=== PATIENT | female | born 1940 | race Caucasian/White ===

== ENCOUNTER 2017-08-27 21:07 | Emergency (ER) | payer MEDICARE, MEDICAID ==
[~2017-08-27] VITALS: Ht 157.5 cm; Wt 70.9 kg
[~2017-08-27 21:07] MED LIST: ACETAMINOPHEN; ALBU18HF2 IH; ALEN70TA48 PO; BENAZEPRIL 5 MG; CITA-278 PO; CYCL-1 PO; HYDROCODONE; INSU100C4 SQ; INSU100V12 SQ; LORA0.5T PO; LORATADINE 10 MG; LOVA40TA2 PO; METO5TAB98 PO; OFLOXACIN 0.3%; PANT-47 PO; POLY17PO10 PO; PROP20TA6 PO; TIZANIDINE 2 MG; [UNRECOGNIZED DRUG - MIXTURE]
[2017-08-27] MEDS ORDERED: ondansetron 4mg rapidly disintigrating tab PO ONE (22:35)
[2017-08-27] MEDS ORDERED: morphine 5 MG/ML injection IM ONE (22:35)
[2017-08-27] MEDS ORDERED: morphine 4 MG/ML inj SYRINge IM ONE ×2 (22:50→23:45)
[2017-08-27] MEDS ORDERED: tizanidine 4mg tablet PO STA (23:38)
[2017-08-27] MEDS ORDERED: diazepam 5mg tablet PO ONE (23:40)
[2017-08-28 01:35] VITALS: BP 117/68
== END 2017-08-28 01:38 | disposition home or self-care (01) ==
LOC: ER 21:08
DX: M54.41 Lumbago with sciatica, right side (principal); E11.9 Type 2 diabetes mellitus without complications; Z88.6 Allergy status to analgesic agent; Z88.2 Allergy status to sulfonamides; Z88.8 Allergy status to other drugs, medicaments and biological substances; Z79.82 Long term (current) use of aspirin
CPT/HCPCS: 96372; 99284; J2270

== ENCOUNTER 2017-10-30 17:41 | Inpatient (IN) | payer MEDICARE, MEDICAID ==
[~2017-10-30] VITALS: Ht 157.5 cm; Wt 70.9 kg
[2017-10-30] MEDS ORDERED: normal saline 1000ML IV soln IVB ONE (18:15)
[2017-10-30] MEDS ORDERED: ondansetron/PF 4mg/2ml inj IV ONE (18:15)
[2017-10-30] MEDS ORDERED: morphine 4 MG/ML inj SYRINge IV PRN ×3 (18:15→22:30)
[2017-10-30] MEDS ORDERED: LORazepam 2 mg/ml vial IV ONE (18:20)
[2017-10-30 18:35] LABS: BASOPHILS % (AUTO) 0 % (0-1); EOSINOPHILS # (AUTO) 0.4 X10'3 (0-0.9); EOSINOPHILS % (AUTO) 1.9 % (0-6); HEMATOCRIT 38.5 % (35.0-45.0); HEMOGLOBIN 13.2 g/dl (12.0-16.0); LYMPHOCYTES # (AUTO) 2.9 X10'3 (1.1-4.8); LYMPHOCYTES % (AUTO) 14.9 % (21-51); MEAN CORPUSCULAR HEMOGLOBIN 30.9 PG (27.0-31.0); MEAN CORPUSCULAR HGB CONC 34.2 % (33.0-36.5); MEAN CORPUSCULAR VOLUME 90.4 FL (78-98); MEAN PLATELET VOLUME 6.7 FL (7.4-10.4); MONOCYTES # (AUTO) 0.7 X10'3 (0-0.9); MONOCYTES % (AUTO) 3.7 % (2-12); NEUTROPHILS # (AUTO) 15.5 X10'3 (1.8-7.7); NEUTROPHILS % (AUTO) 79.5 % (42-75); PLATELET COUNT 300 X10'3 (140-440); RED BLOOD COUNT 4.26 X10'6 (4.20-5.60); RED CELL DISTRIBUTION WIDTH 13.5 % (11.5-14.5); WHITE BLOOD COUNT 19.5 X10'3 (4.5-11.0)
[2017-10-30 18:54] LABS: ALANINE AMINOTRANSFERASE 31 U/L (12-78); ALBUMIN 3.7 G/DL (3.4-5.0); ALBUMIN/GLOBULIN RATIO 0.9 (1.1-1.5); ALKALINE PHOSPHATASE 134 IU/L (46-116); ANION GAP 17 (8-16); ASPARTATE AMINO TRANSFERASE 21 U/L (10-37); BILIRUBIN,TOTAL 0.3 MG/DL (0.1-1.0); BLOOD UREA NITROGEN 18 MG/DL (7-18); BUN/CREATININE RATIO 12.6 (6.6-38.0); CALCIUM 9.2 MG/DL (8.5-10.1); CHLORIDE 106 MMOL/L (99-107); CREATININE 1.43 MG/DL (0.40-0.90); GLUCOSE 149 MG/DL (70-104); LIPASE 126 U/L (73-393); POTASSIUM 3.5 MMOL/L (3.5-5.1); SODIUM 140 MMOL/L (135-145); TOTAL CARBON DIOXIDE 16.6 MMOL/L (24-32); TOTAL PROTEIN 7.7 G/DL (6.4-8.2); eGFR 36 ML/MIN
[2017-10-30 19:28] LABS: COLOR,URINE YELLOW (Yellow); GLUCOSE, URINE NEGATIVE (Neg); KETONES,URINE 40 mg/dl (Neg); LEUKOCYTE ESTERASE ,URINE MODERATE (Neg); NITRITES, URINE NEGATIVE (Neg); OCCULT BLOOD,URINE NEGATIVE (Neg); PROTEIN,URINE TRACE mg/dl (Neg); UROBILINOGEN,URINE 0.2 E.U/dL (0.2-1.0)
[2017-10-30 19:33] LABS: CLARITY,URINE SLIGHTLY CLOUDY (Clear); UA COLLECTION TYPE CLN CATCH MIDSTREAM
[2017-10-30 19:35] LABS: BACTERIA,URINE FEW /HPF (Neg); RBC,URINE 0-2 /HPF (0-2); SQUAMOUS EPITHELIAL CELL,UR FEW /LPF (FEW)
[2017-10-30] MEDS ORDERED: CefTRIAXone 2gm/D5W 50ml 50 ML IV ONE (19:45)
[2017-10-30] MEDS ORDERED: insulin glargine (Lantus) pen - multi-dose SQ ONE (21:00)
[2017-10-30] MEDS ORDERED: BENA5TAB2 PO (21:52)
[2017-10-30] MEDS ORDERED: LORA10TA7 PO (21:52)
[2017-10-30] MEDS ORDERED: OMEP-50 PO (21:52)
[2017-10-30] MEDS ORDERED: HYDR50CA5 PO (21:52)
[2017-10-30] MEDS ORDERED: CITA20TA27 PO (21:52)
[2017-10-30] MEDS ORDERED: TIZA2TAB4 PO (21:52)
[2017-10-30] MEDS ORDERED: acetaminophen 325mg tablet PO PRN ×2 (22:30)
[2017-10-30] MEDS ORDERED: mag hydrox/Alum hydrox/simeth 30ml oral suspension PO PRN (22:30)
[2017-10-30] MEDS ORDERED: ondansetron/PF 4mg/2ml inj IV PRN (22:30)
[2017-10-30] MEDS ORDERED: magnesium hydroxide 30ml (MOM) UD suspension PO PRN (22:30)
[2017-10-30] MEDS ORDERED: docusate sod 100mg capsule PO PRN (22:30)
[2017-10-30] MEDS: normal saline 1000ml 1,000 ML IV SCH (22:52)
[2017-10-30] MEDS ORDERED: normal saline 1000ML IV soln IV ONE (23:05)
[2017-10-30 23:20] LABS: MAGNESIUM 1.6 MG/DL (1.5-2.4)
[2017-10-30] MEDS ORDERED: normal saline 1000ml 1,000 ML IV ONE (23:35)
[2017-10-30] MEDS ORDERED: hydrOXYzine 25 MG tablet PO PRN (23:35)
[2017-10-30 23:55] LABS: PARTIAL THROMBOPLASTIN TIME 25 SECONDS (22-32); PROTHROMBIN TIME 10.7 SECONDS (9.0-12.0)
[2017-10-31] MEDS ORDERED: dextrose ORAL solution 15 GM/59 ML bottle PO PRN ×2 (00:30)
[2017-10-31] MEDS ORDERED: glucagon, human recombinant 1mg kit SUBCUT PRN (00:30)
[2017-10-31] MEDS ORDERED: MESSAGE TO PHARMACY PO ONE (00:30)
[2017-10-31] MEDS ORDERED: dextrose 50%-water 50ml dispensing syringe IV PRN ×2 (00:30)
[2017-10-31 02:40] VITALS: BP 149/71
[2017-10-31 07:31] VITALS: BP 127/70
[2017-10-31] MEDS ORDERED: CefTRIAXone 2gm/D5W 50ml 50 ML IV SCH (08:00)
[2017-10-31 09:31] LABS: BASOPHILS % (AUTO) 0.2 % (0-1); EOSINOPHILS # (AUTO) 0.2 X10'3 (0-0.9); HEMATOCRIT 30.5 % (35.0-45.0); HEMOGLOBIN 10.3 g/dl (12.0-16.0); LYMPHOCYTES # (AUTO) 2.2 X10'3 (1.1-4.8); LYMPHOCYTES % (AUTO) 19.3 % (21-51); MEAN CORPUSCULAR HEMOGLOBIN 30.4 PG (27.0-31.0); MEAN CORPUSCULAR HGB CONC 33.8 % (33.0-36.5); MEAN PLATELET VOLUME 6.9 FL (7.4-10.4); MONOCYTES # (AUTO) 0.5 X10'3 (0-0.9); MONOCYTES % (AUTO) 4.2 % (2-12); NEUTROPHILS # (AUTO) 8.6 X10'3 (1.8-7.7); NEUTROPHILS % (AUTO) 74.3 % (42-75); PLATELET COUNT 219 X10'3 (140-440); RED BLOOD COUNT 3.39 X10'6 (4.20-5.60); RED CELL DISTRIBUTION WIDTH 13.8 % (11.5-14.5); WHITE BLOOD COUNT 11.6 X10'3 (4.5-11.0)
[2017-10-31 09:43] LABS: ALBUMIN 2.7 G/DL (3.4-5.0); ANION GAP 8 (8-16); BLOOD UREA NITROGEN 14 MG/DL (7-18); BUN/CREATININE RATIO 12.6 (6.6-38.0); CALCIUM 7.6 MG/DL (8.5-10.1); CHLORIDE 111 MMOL/L (99-107); CREATININE 1.11 MG/DL (0.40-0.90); GLUCOSE 113 MG/DL (70-104); POTASSIUM 3.9 MMOL/L (3.5-5.1); SODIUM 141 MMOL/L (135-145); TOTAL CARBON DIOXIDE 21.6 MMOL/L (24-32); eGFR 48 ML/MIN
[2017-10-31] MEDS: citalopram 20mg tablet PO SCH (09:52)
[2017-10-31] MEDS: loratadine 10mg tablet PO SCH (09:53)
[2017-10-31] MEDS: tizanidine 4mg tablet PO SCH ×3 (09:53→21:20)
[2017-10-31] MEDS: pantoprazole 40mg Tablet.DR PO SCH ×2 (09:54→21:20)
[2017-10-31] MEDS: lisinopril 5mg tablet PO SCH (09:54)
[2017-10-31] MEDS: enoxaparin 40mg/0.4ml syringe SQ SCH (09:55)
[2017-10-31 11:00] VITALS: BP 140/64
[2017-10-31] MEDS: normal saline 1000ml 1,000 ML IV SCH ×3 (11:53→23:00)
[2017-10-31] MEDS: ibuprofen tablet 400 MG TABLET PO PRN (13:45)
[2017-10-31 18:00] VITALS: BP 121/53
[2017-10-31] MEDS: insulin glargine (Lantus) pen - multi-dose SQ SCH (21:19)
[2017-11-01] VITALS: BP 125/65
[2017-11-01 05:49] LABS: BASOPHILS % (AUTO) 0.2 % (0-1); EOSINOPHILS # (AUTO) 0.2 X10'3 (0-0.9); EOSINOPHILS % (AUTO) 3.5 % (0-6); HEMATOCRIT 30.7 % (35.0-45.0); HEMOGLOBIN 10.4 g/dl (12.0-16.0); LYMPHOCYTES # (AUTO) 1.8 X10'3 (1.1-4.8); LYMPHOCYTES % (AUTO) 25.5 % (21-51); MEAN CORPUSCULAR HEMOGLOBIN 30.6 PG (27.0-31.0); MEAN CORPUSCULAR HGB CONC 33.8 % (33.0-36.5); MEAN CORPUSCULAR VOLUME 90.5 FL (78-98); MEAN PLATELET VOLUME 7.1 FL (7.4-10.4); MONOCYTES # (AUTO) 0.3 X10'3 (0-0.9); MONOCYTES % (AUTO) 4.1 % (2-12); NEUTROPHILS # (AUTO) 4.7 X10'3 (1.8-7.7); NEUTROPHILS % (AUTO) 66.7 % (42-75); PLATELET COUNT 182 X10'3 (140-440); RED CELL DISTRIBUTION WIDTH 13.6 % (11.5-14.5)
[2017-11-01 06:51] LABS: ALBUMIN 2.6 G/DL (3.4-5.0); ANION GAP 9 (8-16); BLOOD UREA NITROGEN 11 MG/DL (7-18); CALCIUM 7.7 MG/DL (8.5-10.1); CHLORIDE 111 MMOL/L (99-107); GLUCOSE 187 MG/DL (70-104); POTASSIUM 4.7 MMOL/L (3.5-5.1); SODIUM 140 MMOL/L (135-145); TOTAL CARBON DIOXIDE 20.1 MMOL/L (24-32); eGFR 48 ML/MIN
[2017-11-01 07:00] VITALS: BP_SYST 118; BP_SYST 135; BP_DIAS 73; BP_DIAS 75
[2017-11-01] MEDS: loratadine 10mg tablet PO SCH (07:14)
[2017-11-01] MEDS: pantoprazole 40mg Tablet.DR PO SCH ×2 (07:14→20:39)
[2017-11-01] MEDS: clindamycin 150mg capsule PO SCH ×3 (07:15→20:38)
[2017-11-01] MEDS: citalopram 20mg tablet PO SCH (07:15)
[2017-11-01] MEDS: tizanidine 4mg tablet PO SCH ×3 (07:15→20:39)
[2017-11-01] MEDS: enoxaparin 40mg/0.4ml syringe SQ SCH (07:18)
[2017-11-01] MEDS: lisinopril 5mg tablet PO SCH (07:18)
[2017-11-01] MEDS: insulin Lispro (HumaLOG) vial - multi-dose SQ SCH ×2 (09:32→13:12)
[2017-11-01 11:00] VITALS: BP 143/56
[2017-11-01] MEDS: ibuprofen tablet 400 MG TABLET PO PRN ×2 (12:10→20:40)
[2017-11-01] MEDS ORDERED: vancomycin/NS 1 GM ADD-VANTAGE 250 ML IV SCH (14:00)
[2017-11-01 19:30] VITALS: BP 139/79
[2017-11-01] MEDS: lactobacillus rhamnosus 10,000 MMU CELLS/CAPSULE PO SCH (20:38)
[2017-11-01] MEDS: insulin glargine (Lantus) pen - multi-dose SQ SCH (22:42)
[2017-11-02] VITALS: BP 146/75
[2017-11-02] MEDS: clindamycin 150mg capsule PO SCH ×2 (02:37→07:37)
[2017-11-02 05:32] LABS: BASOPHILS % (AUTO) 0.2 % (0-1); EOSINOPHILS # (AUTO) 0.2 X10'3 (0-0.9); EOSINOPHILS % (AUTO) 2.8 % (0-6); HEMATOCRIT 32.5 % (35.0-45.0); HEMOGLOBIN 10.8 g/dl (12.0-16.0); LYMPHOCYTES # (AUTO) 1.7 X10'3 (1.1-4.8); LYMPHOCYTES % (AUTO) 20.8 % (21-51); MEAN CORPUSCULAR HGB CONC 33.4 % (33.0-36.5); MEAN CORPUSCULAR VOLUME 89.8 FL (78-98); MEAN PLATELET VOLUME 6.8 FL (7.4-10.4); MONOCYTES # (AUTO) 0.4 X10'3 (0-0.9); MONOCYTES % (AUTO) 4.8 % (2-12); NEUTROPHILS # (AUTO) 5.7 X10'3 (1.8-7.7); NEUTROPHILS % (AUTO) 71.4 % (42-75); PLATELET COUNT 212 X10'3 (140-440); RED BLOOD COUNT 3.62 X10'6 (4.20-5.60); RED CELL DISTRIBUTION WIDTH 13.4 % (11.5-14.5)
[2017-11-02] MEDS: ibuprofen tablet 400 MG TABLET PO PRN (05:37)
[2017-11-02 05:57] LABS: ALBUMIN 2.7 G/DL (3.4-5.0); ANION GAP 9 (8-16); BLOOD UREA NITROGEN 12 MG/DL (7-18); BUN/CREATININE RATIO 10.5 (6.6-38.0); CALCIUM 8.5 MG/DL (8.5-10.1); CHLORIDE 111 MMOL/L (99-107); CREATININE 1.14 MG/DL (0.40-0.90); GLUCOSE 143 MG/DL (70-104); POTASSIUM 4.1 MMOL/L (3.5-5.1); SODIUM 141 MMOL/L (135-145); TOTAL CARBON DIOXIDE 20.9 MMOL/L (24-32); eGFR 46 ML/MIN
[2017-11-02] MEDS: lisinopril 5mg tablet PO SCH (07:37)
[2017-11-02] MEDS: loratadine 10mg tablet PO SCH (07:37)
[2017-11-02] MEDS: tizanidine 4mg tablet PO SCH (07:38)
[2017-11-02] MEDS: lactobacillus rhamnosus 10,000 MMU CELLS/CAPSULE PO SCH (07:38)
[2017-11-02] MEDS: pantoprazole 40mg Tablet.DR PO SCH (07:38)
[2017-11-02] MEDS: citalopram 20mg tablet PO SCH (08:10)
[2017-11-02] MEDS: enoxaparin 40mg/0.4ml syringe SQ SCH (08:11)
[2017-11-02 08:18] VITALS: BP 151/67
[2017-11-02] MEDS: insulin Lispro (HumaLOG) vial - multi-dose SQ SCH (09:36)
[2017-11-02] MEDS ORDERED: CLE150C PO (10:50)
[2017-11-02 15:03] LABS: CRYPTOSPORIDIUM AG NEGATIVE (Neg); GIARDIA LAMBLIA AG NEGATIVE (Neg)
[2017-11-03] MEDS ORDERED: VANCOMYCIN LEVEL IV ONE (13:30)
== END 2017-11-02 13:10 | disposition home or self-care (01) | DRG 872 ==
LOC: ER 17:41 → ED HOLD 22:28 → SUR 3N 10-31 02:30
PROVIDERS: ADMIT Internal Medicine; ATTEND Internal Medicine
DX: A41.9 Sepsis, unspecified organism (principal); N17.9 Acute kidney failure, unspecified; N39.0 Urinary tract infection, site not specified; F13.239 Sedative, hypnotic or anxiolytic dependence with withdrawal, unspecified; R44.0 Auditory hallucinations; K21.9 Gastro-esophageal reflux disease without esophagitis; I12.9 Hypertensive chronic kidney disease with stage 1 through stage 4 chronic kidney disease, or unspecified chronic kidney disease; N18.3 Chronic kidney disease, stage 3 (moderate); F41.0 Panic disorder [episodic paroxysmal anxiety]; F41.1 Generalized anxiety disorder; E78.5 Hyperlipidemia, unspecified; E11.40 Type 2 diabetes mellitus with diabetic neuropathy, unspecified; E11.22 Type 2 diabetes mellitus with diabetic chronic kidney disease; M54.9 Dorsalgia, unspecified; G89.29 Other chronic pain; Z66 Do not resuscitate; K76.0 Fatty (change of) liver, not elsewhere classified; K57.90 Diverticulosis of intestine, part unspecified, without perforation or abscess without bleeding; K04.7 Periapical abscess without sinus; F32.9 Major depressive disorder, single episode, unspecified; D64.9 Anemia, unspecified; B95.5 Unspecified streptococcus as the cause of diseases classified elsewhere; B96.20 Unspecified Escherichia coli [E. coli] as the cause of diseases classified elsewhere; Z88.6 Allergy status to analgesic agent; Z88.1 Allergy status to other antibiotic agents; Z79.899 Other long term (current) drug therapy; Z90.710 Acquired absence of both cervix and uterus; Z87.11 Personal history of peptic ulcer disease; Z88.0 Allergy status to penicillin; Z88.2 Allergy status to sulfonamides; Z88.8 Allergy status to other drugs, medicaments and biological substances
CPT/HCPCS: 36415; 70486; 71045; 80048; 80053; 81001; 82948; 83036; 83605; 83690; 83735; 84145; 85025; 85610; 85730; 87040; 87045; 87046; 87070; 87077; 87088; 87186; 87328; 87329; 87336; 93005; 96361; 96365; 96375; 99285; J0696; J1650; J1815; J2060; J2270; J2405; J3370; J7030; Q0177

== ENCOUNTER 2017-11-11 09:21 | Inpatient (IN) | payer MEDICARE, MEDICAID ==
[~2017-11-11] VITALS: Ht 552.4 cm; Wt 69.3 kg
[~2017-11-11 09:21] MED LIST changes: -ACETAMINOPHEN; -ALBU18HF2 IH; -ALEN70TA48 PO; +BENA5TAB6 PO; -BENAZEPRIL 5 MG; -CITA-278 PO; +CITA20TA27 PO; +CLE150C PO; -CYCL-1 PO; +HYDR50CA5 PO; -HYDROCODONE; -INSU100C4 SQ; -INSU100V12 SQ; -LORA0.5T PO; +LORA10TA7 PO; -LORATADINE 10 MG; -LOVA40TA2 PO; -METO5TAB98 PO; -OFLOXACIN 0.3%; +OMEP-50 PO; -PANT-47 PO; -POLY17PO10 PO; -PROP20TA6 PO; +TIZA2TAB4 PO; -TIZANIDINE 2 MG; -[UNRECOGNIZED DRUG - MIXTURE]
[2017-11-11 09:56] LABS: BASOPHILS % (AUTO) 0.3 % (0-1); EOSINOPHILS # (AUTO) 0.3 X10'3 (0-0.9); EOSINOPHILS % (AUTO) 1.9 % (0-6); HEMATOCRIT 39.6 % (35.0-45.0); HEMOGLOBIN 13.6 g/dl (12.0-16.0); LYMPHOCYTES # (AUTO) 3.9 X10'3 (1.1-4.8); LYMPHOCYTES % (AUTO) 24.9 % (21-51); MEAN CORPUSCULAR HEMOGLOBIN 30.8 PG (27.0-31.0); MEAN CORPUSCULAR HGB CONC 34.4 % (33.0-36.5); MEAN CORPUSCULAR VOLUME 89.4 FL (78-98); MEAN PLATELET VOLUME 6.8 FL (7.4-10.4); MONOCYTES # (AUTO) 0.5 X10'3 (0-0.9); MONOCYTES % (AUTO) 3.1 % (2-12); NEUTROPHILS # (AUTO) 10.9 X10'3 (1.8-7.7); NEUTROPHILS % (AUTO) 69.8 % (42-75); PLATELET COUNT 294 X10'3 (140-440); RED BLOOD COUNT 4.42 X10'6 (4.20-5.60); RED CELL DISTRIBUTION WIDTH 13.7 % (11.5-14.5); WHITE BLOOD COUNT 15.6 X10'3 (4.5-11.0)
[2017-11-11 10:09] LABS: ALANINE AMINOTRANSFERASE 36 U/L (12-78); ALBUMIN 3.9 G/DL (3.4-5.0); ALKALINE PHOSPHATASE 132 IU/L (46-116); ANION GAP 13 (8-16); ASPARTATE AMINO TRANSFERASE 24 U/L (10-37); BILIRUBIN,TOTAL 0.4 MG/DL (0.1-1.0); BLOOD UREA NITROGEN 27 MG/DL (7-18); BUN/CREATININE RATIO 12.5 (6.6-38.0); CALCIUM 9.9 MG/DL (8.5-10.1); CHLORIDE 96 MMOL/L (99-107); CREATININE 2.16 MG/DL (0.40-0.90); GLUCOSE 287 MG/DL (70-104); LIPASE 249 U/L (73-393); POTASSIUM 5.8 MMOL/L (3.5-5.1); SODIUM 132 MMOL/L (135-145); TOTAL CARBON DIOXIDE 23.4 MMOL/L (24-32); eGFR 22 ML/MIN
[2017-11-11] MEDS ORDERED: normal saline 1000ML IV soln IV ONE (10:20)
[2017-11-11 10:44] LABS: CLARITY,URINE CLOUDY (Clear); COLOR,URINE YELLOW (Yellow); GLUCOSE, URINE >=1000 mg/dl (Neg); KETONES,URINE NEGATIVE (Neg); LEUKOCYTE ESTERASE ,URINE NEGATIVE (Neg); NITRITES, URINE NEGATIVE (Neg); OCCULT BLOOD,URINE NEGATIVE (Neg); PH,URINE 5.5 (4.8-8.0); PROTEIN,URINE TRACE mg/dl (Neg); UROBILINOGEN,URINE 0.2 E.U/dL (0.2-1.0)
[2017-11-11 10:46] LABS: UA COLLECTION TYPE STRAIGHT CATH
[2017-11-11 10:54] LABS: BACTERIA,URINE 2+ /HPF (Neg); RENAL CELLS, URINE MODERATE /HPF; TRANSITIONAL EPI CELLS,URINE FEW /HPF
[2017-11-11 10:55] LABS: RBC,URINE 0-2 /HPF (0-2); SQUAMOUS EPITHELIAL CELL,UR FEW /LPF (FEW); WBC,URINE 0-4 /HPF (0-4)
[2017-11-11] MEDS ORDERED: INSU100V12 SQ (13:10)
[2017-11-11] MEDS ORDERED: INSU100C10 SQ ×2 (13:15→13:18)
[2017-11-11] MEDS ORDERED: sodium polystyrene sulfonate 15gm/60ml oral suspension PO ONE (14:00)
[2017-11-11] MEDS ORDERED: MESSAGE TO PHARMACY PO ONE (14:00)
[2017-11-11] MEDS ORDERED: acetaminophen 325mg tablet PO PRN ×2 (14:00)
[2017-11-11] MEDS ORDERED: diphenhydrAMINE 25mg capsule PO PRN (14:00)
[2017-11-11] MEDS ORDERED: HYDROcodone/acetaminophen 5mg/325mg tablet PO PRN (14:00)
[2017-11-11] MEDS ORDERED: potassium Cl 40MEQ/NS 500ml 500 ML IV PRN ×2 (14:00)
[2017-11-11] MEDS ORDERED: morphine 4 MG/ML inj SYRINge IV PRN (14:00)
[2017-11-11] MEDS ORDERED: potassium Cl 20 mEq SR tablet PO PRN ×2 (14:00)
[2017-11-11] MEDS ORDERED: magnesium hydroxide 30ml (MOM) UD suspension PO PRN (14:00)
[2017-11-11] MEDS ORDERED: magnesium 4gm in 100ml NS 100 ML IV PRN (14:00)
[2017-11-11] MEDS ORDERED: dextrose 50%-water 50ml dispensing syringe IV PRN ×2 (14:00)
[2017-11-11] MEDS ORDERED: magnesium 1gm/100ml D5W IVPB 100 ML IV PRN (14:00)
[2017-11-11] MEDS: K and/or MAG REPLACEMENT MC SCH (14:00)
[2017-11-11] MEDS ORDERED: glucagon, human recombinant 1mg kit SUBCUT PRN (14:00)
[2017-11-11] MEDS ORDERED: dextrose ORAL solution 15 GM/59 ML bottle PO PRN ×2 (14:00)
[2017-11-11] MEDS ORDERED: mag hydrox/Alum hydrox/simeth 30ml oral suspension PO PRN (14:00)
[2017-11-11] MEDS ORDERED: ondansetron/PF 4mg/2ml inj IV PRN (14:00)
[2017-11-11] MEDS: levoFLOXACIN-Levaquin 500mg/D5 100 ML IV SCH (15:03)
[2017-11-11] MEDS: normal saline 1000ml 1,000 ML IV SCH (15:03)
[2017-11-11] MEDS: hydrOXYzine 25 MG tablet PO PRN ×2 (15:04→23:13)
[2017-11-11 15:45] VITALS: BP 138/42
[2017-11-11 16:01] LABS: OCCULT BLOOD STOOL NEGATIVE (Neg)
[2017-11-11 16:23] LABS: C DIFF ANTIGEN NEGATIVE (NEGATIVE); C DIFF SPECIMEN=DIARRHEA? ACCEPTABLE; C DIFFICILE TOXINS A&B NEGATIVE (Neg)
[2017-11-11] MEDS: metroNIDAZOLE-Flagyl 500mg/NS 100 ML IV SCH ×2 (17:23→23:13)
[2017-11-11] MEDS: heparin, porcine 5000 units/ml vial SQ SCH (20:05)
[2017-11-11] MEDS ORDERED: LORazepam 0.5 MG tablet PO PRN (20:15)
[2017-11-11] MEDS: insulin glargine (Lantus) pen - multi-dose SQ SCH (21:46)
[2017-11-11 23:00] VITALS: BP 82/64
[2017-11-12] VITALS (8 sets, daily range): BP systolic 118–154; BP diastolic 37–69
[2017-11-12] MEDS: normal saline 1000ml 1,000 ML IV SCH ×3 (04:16→16:25)
[2017-11-12 05:46] LABS: ALANINE AMINOTRANSFERASE 31 U/L (12-78); ALBUMIN 2.9 G/DL (3.4-5.0); ALBUMIN/GLOBULIN RATIO 0.9 (1.1-1.5); ALKALINE PHOSPHATASE 96 IU/L (46-116); ANION GAP 10 (8-16); ASPARTATE AMINO TRANSFERASE 23 U/L (10-37); BASOPHILS % (AUTO) 0.1 % (0-1); BILIRUBIN,TOTAL 0.3 MG/DL (0.1-1.0); BLOOD UREA NITROGEN 20 MG/DL (7-18); BUN/CREATININE RATIO 14.5 (6.6-38.0); CALCIUM 8.2 MG/DL (8.5-10.1); CHLORIDE 106 MMOL/L (99-107); CREATININE 1.38 MG/DL (0.40-0.90); EOSINOPHILS # (AUTO) 0.3 X10'3 (0-0.9); EOSINOPHILS % (AUTO) 3.5 % (0-6); GLUCOSE 200 MG/DL (70-104); HEMATOCRIT 32.9 % (35.0-45.0); HEMOGLOBIN 11.1 g/dl (12.0-16.0); LYMPHOCYTES # (AUTO) 2.5 X10'3 (1.1-4.8); LYMPHOCYTES % (AUTO) 27.4 % (21-51); MAGNESIUM 1.4 MG/DL (1.5-2.4); MEAN CORPUSCULAR HEMOGLOBIN 30.7 PG (27.0-31.0); MEAN CORPUSCULAR HGB CONC 33.9 % (33.0-36.5); MEAN CORPUSCULAR VOLUME 90.6 FL (78-98); MEAN PLATELET VOLUME 6.9 FL (7.4-10.4); MONOCYTES # (AUTO) 0.5 X10'3 (0-0.9); MONOCYTES % (AUTO) 4.9 % (2-12); NEUTROPHILS # (AUTO) 5.9 X10'3 (1.8-7.7); NEUTROPHILS % (AUTO) 64.1 % (42-75); PHOSPHORUS 3.5 MG/DL (2.3-4.5); PLATELET COUNT 232 X10'3 (140-440); POTASSIUM 4.7 MMOL/L (3.5-5.1); RED BLOOD COUNT 3.63 X10'6 (4.20-5.60); RED CELL DISTRIBUTION WIDTH 14.1 % (11.5-14.5); SODIUM 138 MMOL/L (135-145); TOTAL CARBON DIOXIDE 22.5 MMOL/L (24-32); TOTAL PROTEIN 6.2 G/DL (6.4-8.2); WHITE BLOOD COUNT 9.2 X10'3 (4.5-11.0); eGFR 37 ML/MIN
[2017-11-12] MEDS: hydrOXYzine 25 MG tablet PO PRN ×3 (07:45→20:01)
[2017-11-12] MEDS: magnesium Cl slow-release 64mg tablet PO PRN ×2 (07:45→20:01)
[2017-11-12] MEDS: pantoprazole 40mg Tablet.DR PO SCH (07:45)
[2017-11-12] MEDS: citalopram 20mg tablet PO SCH (07:46)
[2017-11-12] MEDS: heparin, porcine 5000 units/ml vial SQ SCH ×2 (07:47→20:02)
[2017-11-12] MEDS: metroNIDAZOLE-Flagyl 500mg/NS 100 ML IV SCH ×2 (07:48→16:03)
[2017-11-12] MEDS: insulin Lispro (HumaLOG) vial - multi-dose SQ SCH ×3 (08:01→18:57)
[2017-11-12] MEDS: K and/or MAG REPLACEMENT MC SCH (08:03)
[2017-11-12] MEDS: levoFLOXACIN-Levaquin 500mg/D5 100 ML IV SCH (09:31)
[2017-11-12] MEDS: lactobacillus rhamnosus 10,000 MMU CELLS/CAPSULE PO SCH (20:00)
[2017-11-12] MEDS: insulin glargine (Lantus) pen - multi-dose SQ SCH (21:32)
[2017-11-13] MEDS: metroNIDAZOLE-Flagyl 500mg/NS 100 ML IV SCH ×2 (00:20→07:51)
[2017-11-13 03:00] VITALS: BP 173/56
[2017-11-13 05:30] LABS: BASOPHILS % (AUTO) 0.1 % (0-1); EOSINOPHILS # (AUTO) 0.3 X10'3 (0-0.9); EOSINOPHILS % (AUTO) 4.3 % (0-6); HEMATOCRIT 33.3 % (35.0-45.0); HEMOGLOBIN 11.4 g/dl (12.0-16.0); LYMPHOCYTES # (AUTO) 1.5 X10'3 (1.1-4.8); LYMPHOCYTES % (AUTO) 21.7 % (21-51); MEAN CORPUSCULAR HEMOGLOBIN 30.9 PG (27.0-31.0); MEAN CORPUSCULAR HGB CONC 34.3 % (33.0-36.5); MEAN CORPUSCULAR VOLUME 90.2 FL (78-98); MEAN PLATELET VOLUME 6.8 FL (7.4-10.4); MONOCYTES # (AUTO) 0.3 X10'3 (0-0.9); NEUTROPHILS # (AUTO) 4.9 X10'3 (1.8-7.7); NEUTROPHILS % (AUTO) 69.9 % (42-75); PLATELET COUNT 200 X10'3 (140-440); RED BLOOD COUNT 3.69 X10'6 (4.20-5.60); RED CELL DISTRIBUTION WIDTH 13.4 % (11.5-14.5); WHITE BLOOD COUNT 7.1 X10'3 (4.5-11.0)
[2017-11-13 05:38] LABS: ALANINE AMINOTRANSFERASE 31 U/L (12-78); ALBUMIN 2.9 G/DL (3.4-5.0); ALBUMIN/GLOBULIN RATIO 0.9 (1.1-1.5); ALKALINE PHOSPHATASE 99 IU/L (46-116); ANION GAP 10 (8-16); ASPARTATE AMINO TRANSFERASE 27 U/L (10-37); BILIRUBIN,TOTAL 0.3 MG/DL (0.1-1.0); BLOOD UREA NITROGEN 13 MG/DL (7-18); CALCIUM 8.2 MG/DL (8.5-10.1); CHLORIDE 108 MMOL/L (99-107); CREATININE 1.08 MG/DL (0.40-0.90); GLUCOSE 201 MG/DL (70-104); MAGNESIUM 1.3 MG/DL (1.5-2.4); PHOSPHORUS 3.2 MG/DL (2.3-4.5); POTASSIUM 4.6 MMOL/L (3.5-5.1); SODIUM 139 MMOL/L (135-145); TOTAL CARBON DIOXIDE 21.2 MMOL/L (24-32); TOTAL PROTEIN 6.3 G/DL (6.4-8.2); eGFR 49 ML/MIN
[2017-11-13] MEDS: normal saline 1000ml 1,000 ML IV SCH (05:59)
[2017-11-13 06:00] VITALS: BP 146/64
[2017-11-13] MEDS: pantoprazole 40mg Tablet.DR PO SCH (07:48)
[2017-11-13] MEDS: citalopram 20mg tablet PO SCH (07:49)
[2017-11-13] MEDS: heparin, porcine 5000 units/ml vial SQ SCH (07:50)
[2017-11-13] MEDS: magnesium Cl slow-release 64mg tablet PO PRN (07:50)
[2017-11-13] MEDS: lactobacillus rhamnosus 10,000 MMU CELLS/CAPSULE PO SCH (07:50)
[2017-11-13] MEDS: hydrOXYzine 25 MG tablet PO PRN (07:51)
[2017-11-13] MEDS: insulin Lispro (HumaLOG) vial - multi-dose SQ SCH (08:07)
[2017-11-13] MEDS ORDERED: METR500T4 PO (08:59)
[2017-11-13] MEDS: levoFLOXACIN-Levaquin 500mg/D5 100 ML IV SCH (09:12)
== END 2017-11-13 11:53 | disposition home or self-care (01) | DRG 872 ==
LOC: ER 09:21 → ED HOLD 13:59 → EDBEDREQ 14:18 → EDBEDREQTM 14:19 → PCU 3S 15:32 → CMPBEDREQ 19:37
PROVIDERS: ADMIT Family Medicine; ATTEND Internal Medicine
DX: A41.9 Sepsis, unspecified organism (principal); N17.9 Acute kidney failure, unspecified; E87.1 Hypo-osmolality and hyponatremia; N39.0 Urinary tract infection, site not specified; E87.5 Hyperkalemia; F32.9 Major depressive disorder, single episode, unspecified; F41.9 Anxiety disorder, unspecified; D64.9 Anemia, unspecified; E11.21 Type 2 diabetes mellitus with diabetic nephropathy; E11.22 Type 2 diabetes mellitus with diabetic chronic kidney disease; Z60.2 Problems related to living alone; M54.9 Dorsalgia, unspecified; R19.7 Diarrhea, unspecified; E11.65 Type 2 diabetes mellitus with hyperglycemia; G89.29 Other chronic pain; I12.9 Hypertensive chronic kidney disease with stage 1 through stage 4 chronic kidney disease, or unspecified chronic kidney disease; N18.9 Chronic kidney disease, unspecified; Z90.710 Acquired absence of both cervix and uterus; Z88.6 Allergy status to analgesic agent; Z88.0 Allergy status to penicillin; Z88.2 Allergy status to sulfonamides; Z88.8 Allergy status to other drugs, medicaments and biological substances; Z79.899 Other long term (current) drug therapy; Z79.4 Long term (current) use of insulin
CPT/HCPCS: 36415; 71045; 74176; 80053; 81001; 82272; 82948; 83036; 83605; 83690; 83735; 84100; 84145; 85025; 87040; 87045; 87046; 87070; 87324; 87449; 89055; 96360; 96361; 97116; 97161; 99285; A6250; J1644; J1815; J1956; J3490; J7030; Q0177

== ENCOUNTER 2017-11-26 15:39 | Emergency (ER) | payer MEDICARE, MEDICAID ==
[~2017-11-26] VITALS: Ht 157.5 cm; Wt 70.5 kg
[~2017-11-26 15:39] MED LIST changes: -CLE150C PO; +INSU100C10 SQ; +INSU100V12 SQ; +LEVO500T2 PO
[2017-11-26 16:30] LABS: BASOPHILS % (AUTO) 0.3 % (0-1); EOSINOPHILS # (AUTO) 0.2 X10'3 (0-0.9); HEMATOCRIT 32.6 % (35.0-45.0); HEMOGLOBIN 11.2 g/dl (12.0-16.0); LYMPHOCYTES # (AUTO) 2.4 X10'3 (1.1-4.8); LYMPHOCYTES % (AUTO) 24.8 % (21-51); MEAN CORPUSCULAR HEMOGLOBIN 30.9 PG (27.0-31.0); MEAN CORPUSCULAR HGB CONC 34.3 % (33.0-36.5); MEAN CORPUSCULAR VOLUME 90.1 FL (78-98); MEAN PLATELET VOLUME 6.8 FL (7.4-10.4); MONOCYTES # (AUTO) 0.5 X10'3 (0-0.9); MONOCYTES % (AUTO) 5.5 % (2-12); NEUTROPHILS # (AUTO) 6.7 X10'3 (1.8-7.7); NEUTROPHILS % (AUTO) 67.4 % (42-75); PLATELET COUNT 249 X10'3 (140-440); RED BLOOD COUNT 3.62 X10'6 (4.20-5.60); RED CELL DISTRIBUTION WIDTH 12.2 % (11.5-14.5); WHITE BLOOD COUNT 9.8 X10'3 (4.5-11.0)
[2017-11-26 16:34] LABS: ALANINE AMINOTRANSFERASE 27 U/L (12-78); ALBUMIN/GLOBULIN RATIO 0.9 (1.1-1.5); ALKALINE PHOSPHATASE 85 IU/L (46-116); ANION GAP 9 (8-16); ASPARTATE AMINO TRANSFERASE 23 U/L (10-37); BILIRUBIN,TOTAL 0.2 MG/DL (0.1-1.0); BLOOD UREA NITROGEN 22 MG/DL (7-18); BUN/CREATININE RATIO 16.3 (6.6-38.0); CALCIUM 8.1 MG/DL (8.5-10.1); CHLORIDE 106 MMOL/L (99-107); CREATININE 1.35 MG/DL (0.40-0.90); GLUCOSE 91 MG/DL (70-104); SODIUM 138 MMOL/L (135-145); TOTAL PROTEIN 6.5 G/DL (6.4-8.2); eGFR 38 ML/MIN
[2017-11-26 17:36] LABS: CLARITY,URINE SLIGHTLY CLOUDY (Clear); COLOR,URINE YELLOW (Yellow); GLUCOSE, URINE NEGATIVE (Neg); KETONES,URINE NEGATIVE (Neg); LEUKOCYTE ESTERASE ,URINE SMALL (Neg); NITRITES, URINE NEGATIVE (Neg); OCCULT BLOOD,URINE NEGATIVE (Neg); PROTEIN,URINE NEGATIVE (Neg); UROBILINOGEN,URINE 0.2 E.U/dL (0.2-1.0)
[2017-11-26 17:51] LABS: UA COLLECTION TYPE CLN CATCH MIDSTREAM
[2017-11-26 18:02] LABS: BACTERIA,URINE FEW /HPF (Neg); RBC,URINE 0-2 /HPF (0-2); SQUAMOUS EPITHELIAL CELL,UR FEW /LPF (FEW); WBC,URINE 20-30 /HPF (0-4)
[2017-11-26] MEDS ORDERED: FOSFOMYCIN TROMETHAMINE 3 GM PACKET PO ONE (18:50)
[2017-11-26 19:07] VITALS: BP 113/40
[2017-11-26] MEDS ORDERED: clindamycin 300mg/D5W 50mL 50 ML IV SCH (20:00)
== END 2017-11-26 19:18 | disposition home or self-care (01) ==
LOC: ER 15:40
DX: N39.0 Urinary tract infection, site not specified (principal); E11.9 Type 2 diabetes mellitus without complications; G89.29 Other chronic pain; Z95.5 Presence of coronary angioplasty implant and graft; Z90.49 Acquired absence of other specified parts of digestive tract; Z90.710 Acquired absence of both cervix and uterus; Z98.890 Other specified postprocedural states; Z88.8 Allergy status to other drugs, medicaments and biological substances; Z88.0 Allergy status to penicillin; Z88.2 Allergy status to sulfonamides; Z88.5 Allergy status to narcotic agent; Z88.6 Allergy status to analgesic agent; Z79.899 Other long term (current) drug therapy
CPT/HCPCS: 36415; 80053; 81001; 85025; 87077; 87088; 87186; 99284; P9612; A6449

== ENCOUNTER 2017-12-18 17:23 | Emergency (ER) | payer MEDICARE, MEDICAID ==
[~2017-12-18] VITALS: Ht 157.5 cm; Wt 70.0 kg
[~2017-12-18 17:23] MED LIST changes: -LEVO500T2 PO
[2017-12-18] MEDS ORDERED: ketorolac tromethamine 15mg/ml inj. IV ONE (18:10)
[2017-12-18] MEDS ORDERED: HYDROcodone/acetaminophen 10/325mg tab PO ONE (19:00)
[2017-12-18 21:11] LABS: BASOPHILS % (AUTO) 0.3 % (0-1); EOSINOPHILS # (AUTO) 0.3 X10'3 (0-0.9); EOSINOPHILS % (AUTO) 3.1 % (0-6); HEMATOCRIT 33.8 % (35.0-45.0); HEMOGLOBIN 11.6 g/dl (12.0-16.0); LYMPHOCYTES # (AUTO) 1.9 X10'3 (1.1-4.8); MEAN CORPUSCULAR HEMOGLOBIN 30.4 PG (27.0-31.0); MEAN CORPUSCULAR HGB CONC 34.5 % (33.0-36.5); MEAN CORPUSCULAR VOLUME 88.1 FL (78-98); MEAN PLATELET VOLUME 6.6 FL (7.4-10.4); MONOCYTES # (AUTO) 0.5 X10'3 (0-0.9); MONOCYTES % (AUTO) 4.2 % (2-12); NEUTROPHILS # (AUTO) 8.5 X10'3 (1.8-7.7); NEUTROPHILS % (AUTO) 75.4 % (42-75); PLATELET COUNT 258 X10'3 (140-440); RED BLOOD COUNT 3.83 X10'6 (4.20-5.60); RED CELL DISTRIBUTION WIDTH 12.6 % (11.5-14.5); WHITE BLOOD COUNT 11.3 X10'3 (4.5-11.0)
[2017-12-18 21:36] LABS: ALANINE AMINOTRANSFERASE 26 U/L (12-78); ALBUMIN 3.2 G/DL (3.4-5.0); ALBUMIN/GLOBULIN RATIO 0.9 (1.1-1.5); ALKALINE PHOSPHATASE 121 IU/L (46-116); ANION GAP 8 (8-16); ASPARTATE AMINO TRANSFERASE 16 U/L (10-37); BILIRUBIN,TOTAL 0.2 MG/DL (0.1-1.0); BLOOD UREA NITROGEN 31 MG/DL (7-18); BUN/CREATININE RATIO 19.5 (6.6-38.0); CALCIUM 8.6 MG/DL (8.5-10.1); CHLORIDE 100 MMOL/L (99-107); CREATININE 1.59 MG/DL (0.40-0.90); GLUCOSE 317 MG/DL (70-104); POTASSIUM 5.8 MMOL/L (3.5-5.1); SODIUM 131 MMOL/L (135-145); TOTAL CARBON DIOXIDE 22.6 MMOL/L (24-32); TOTAL PROTEIN 6.6 G/DL (6.4-8.2); eGFR 32 ML/MIN
[2017-12-18] MEDS ORDERED: HYDR-569 PO (22:58)
[2017-12-18 22:59] VITALS: BP 122/57
== END 2017-12-18 23:01 | disposition home or self-care (01) ==
LOC: ER 17:23
DX: H66.92 Otitis media, unspecified, left ear (principal); E11.9 Type 2 diabetes mellitus without complications; G89.29 Other chronic pain; Z95.5 Presence of coronary angioplasty implant and graft; Z90.49 Acquired absence of other specified parts of digestive tract; Z90.710 Acquired absence of both cervix and uterus; Z98.890 Other specified postprocedural states; Z88.8 Allergy status to other drugs, medicaments and biological substances; Z88.2 Allergy status to sulfonamides; Z88.0 Allergy status to penicillin; Z88.1 Allergy status to other antibiotic agents; Z79.899 Other long term (current) drug therapy
CPT/HCPCS: 36415; 70480; 80053; 85025; 96374; 99285; J1885

== ENCOUNTER 2018-01-27 20:39 | Inpatient (IN) | payer MEDICARE, MEDICAID ==
[~2018-01-27] VITALS: Ht 157.5 cm; Wt 70.5 kg
[~2018-01-27 20:39] MED LIST changes: +HYDR-4383 PO
[2018-01-27 22:29] LABS: BASOPHILS % (AUTO) 0.2 % (0-1); EOSINOPHILS # (AUTO) 0.3 X10'3 (0-0.9); EOSINOPHILS % (AUTO) 1.8 % (0-6); HEMATOCRIT 37.1 % (35.0-45.0); HEMOGLOBIN 12.3 g/dl (12.0-16.0); LYMPHOCYTES # (AUTO) 1.7 X10'3 (1.1-4.8); LYMPHOCYTES % (AUTO) 11.2 % (21-51); MEAN CORPUSCULAR HEMOGLOBIN 29.1 PG (27.0-31.0); MEAN CORPUSCULAR HGB CONC 33.1 % (33.0-36.5); MEAN CORPUSCULAR VOLUME 87.9 FL (78-98); MEAN PLATELET VOLUME 6.6 FL (7.4-10.4); MONOCYTES # (AUTO) 0.3 X10'3 (0-0.9); MONOCYTES % (AUTO) 1.9 % (2-12); NEUTROPHILS # (AUTO) 12.5 X10'3 (1.8-7.7); NEUTROPHILS % (AUTO) 84.9 % (42-75); PLATELET COUNT 286 X10'3 (140-440); RED BLOOD COUNT 4.22 X10'6 (4.20-5.60); RED CELL DISTRIBUTION WIDTH 12.6 % (11.5-14.5); WHITE BLOOD COUNT 14.8 X10'3 (4.5-11.0)
[2018-01-27 22:44] LABS: ALANINE AMINOTRANSFERASE 32 U/L (12-78); ALBUMIN 3.6 G/DL (3.4-5.0); ALKALINE PHOSPHATASE 95 IU/L (46-116); ANION GAP 14 (8-16); ASPARTATE AMINO TRANSFERASE 24 U/L (10-37); BILIRUBIN,TOTAL 0.3 MG/DL (0.1-1.0); BLOOD UREA NITROGEN 20 MG/DL (7-18); BUN/CREATININE RATIO 14.8 (6.6-38.0); CALCIUM 8.9 MG/DL (8.5-10.1); CHLORIDE 105 MMOL/L (99-107); CREATININE 1.35 MG/DL (0.40-0.90); GLUCOSE 186 MG/DL (70-104); POTASSIUM 3.8 MMOL/L (3.5-5.1); SODIUM 139 MMOL/L (135-145); TOTAL PROTEIN 7.3 G/DL (6.4-8.2); eGFR 38 ML/MIN
[2018-01-27 22:45] LABS: CLARITY,URINE SLIGHTLY CLOUDY (Clear); COLOR,URINE YELLOW (Yellow); GLUCOSE, URINE 100 mg/dl (Neg); KETONES,URINE 15 mg/dl (Neg); LEUKOCYTE ESTERASE ,URINE LARGE (Neg); NITRITES, URINE NEGATIVE (Neg); OCCULT BLOOD,URINE TRACE-INTACT (Neg); PH,URINE 5.5 (4.8-8.0); PROTEIN,URINE NEGATIVE (Neg); UROBILINOGEN,URINE 0.2 E.U/dL (0.2-1.0)
[2018-01-27 22:51] LABS: UA COLLECTION TYPE CLN CATCH MIDSTREAM
[2018-01-27 23:07] LABS: SQUAMOUS EPITHELIAL CELL,UR MODERATE /LPF (FEW)
[2018-01-27 23:08] LABS: BACTERIA,URINE 1+ /HPF (Neg); RBC,URINE 0-2 /HPF (0-2); WBC CLUMPS,URINE MODERATE /HPF (NEGATIVE); WBC,URINE 50-100 /HPF (0-4)
[2018-01-27 23:09] LABS: TRANSITIONAL EPI CELLS,URINE FEW /HPF
[2018-01-27] MEDS ORDERED: cefepime 1GM/NS ADD-VANTAGE 100 ML IV STA (23:36)
[2018-01-28] MEDS ORDERED: HYDROcodone/acetaminophen 10/325mg tab PO ONE (00:40)
[2018-01-28] MEDS ORDERED: mag hydrox/Alum hydrox/simeth 30ml oral suspension PO PRN (02:55)
[2018-01-28] MEDS ORDERED: magnesium hydroxide 30ml (MOM) UD suspension PO PRN (02:55)
[2018-01-28] MEDS ORDERED: ondansetron/PF 4mg/2ml inj IV PRN (02:55)
[2018-01-28] MEDS ORDERED: glucagon, human recombinant 1mg kit SUBCUT PRN (03:00)
[2018-01-28] MEDS ORDERED: insulin Lispro (HumaLOG) vial - multi-dose SQ SCH ×2 (03:00→14:30)
[2018-01-28] MEDS ORDERED: MESSAGE TO PHARMACY PO ONE (03:00)
[2018-01-28] MEDS ORDERED: dextrose ORAL solution 15 GM/59 ML bottle PO PRN ×2 (03:00)
[2018-01-28] MEDS ORDERED: dextrose 50%-water 50ml dispensing syringe IV PRN ×2 (03:00)
[2018-01-28 03:17] LABS: HEMOGLOBIN A1C 8.5 % (4.5-6.2)
[2018-01-28] MEDS: normal saline 1000ml 1,000 ML IV SCH ×3 (03:22→23:50)
[2018-01-28] MEDS: cefepime 1GM/NS ADD-VANTAGE 100 ML IV SCH (07:23)
[2018-01-28] MEDS: acetaminophen 325mg tablet PO PRN ×2 (07:23→13:30)
[2018-01-28] MEDS: pantoprazole 40mg Tablet.DR PO SCH (07:23)
[2018-01-28] MEDS: citalopram 20mg tablet PO SCH (07:24)
[2018-01-28] MEDS: heparin, porcine 5000 units/ml vial SQ SCH ×2 (07:25→20:59)
[2018-01-28] MEDS: loratadine 10mg tablet PO SCH (08:26)
[2018-01-28] MEDS: tizanidine 4mg tablet PO SCH ×3 (08:26→21:00)
[2018-01-28] MEDS: hydrOXYzine 25 MG tablet PO PRN (12:46)
[2018-01-28 15:20] VITALS: BP 115/33
[2018-01-28 17:00] VITALS: BP 116/33
[2018-01-28 19:25] VITALS: BP 118/40
[2018-01-28] MEDS ORDERED: morphine 2 MG/ML inj. syringe IV PRN (20:30)
[2018-01-28] MEDS ORDERED: acetaminophen 325mg tablet PO PRN (20:30)
[2018-01-28] MEDS: lactobacillus rhamnosus 10,000 MMU CELLS/CAPSULE PO SCH (20:59)
[2018-01-28] MEDS: HYDROcodone/acetaminophen 5mg/325mg tablet PO PRN (21:00)
[2018-01-28 22:00] VITALS: BP 113/41
[2018-01-29 02:00] VITALS: BP 138/36
[2018-01-29] MEDS: HYDROcodone/acetaminophen 5mg/325mg tablet PO PRN (02:55)
[2018-01-29 06:00] VITALS: BP 140/54
[2018-01-29 07:32] LABS: BASOPHILS % (AUTO) 0.5 % (0-1); EOSINOPHILS # (AUTO) 0.2 X10'3 (0-0.9); EOSINOPHILS % (AUTO) 3.2 % (0-6); HEMATOCRIT 33.9 % (35.0-45.0); HEMOGLOBIN 11.3 g/dl (12.0-16.0); LYMPHOCYTES # (AUTO) 2.4 X10'3 (1.1-4.8); LYMPHOCYTES % (AUTO) 41.6 % (21-51); MEAN CORPUSCULAR HGB CONC 33.2 % (33.0-36.5); MEAN CORPUSCULAR VOLUME 87.4 FL (78-98); MEAN PLATELET VOLUME 6.5 FL (7.4-10.4); MONOCYTES # (AUTO) 0.3 X10'3 (0-0.9); MONOCYTES % (AUTO) 5.2 % (2-12); NEUTROPHILS # (AUTO) 2.9 X10'3 (1.8-7.7); NEUTROPHILS % (AUTO) 49.5 % (42-75); PLATELET COUNT 240 X10'3 (140-440); RED BLOOD COUNT 3.88 X10'6 (4.20-5.60); RED CELL DISTRIBUTION WIDTH 13.1 % (11.5-14.5); WHITE BLOOD COUNT 5.8 X10'3 (4.5-11.0)
[2018-01-29 07:52] LABS: ALANINE AMINOTRANSFERASE 27 U/L (12-78); ALBUMIN 2.9 G/DL (3.4-5.0); ALBUMIN/GLOBULIN RATIO 0.9 (1.1-1.5); ALKALINE PHOSPHATASE 81 IU/L (46-116); ANION GAP 9 (8-16); ASPARTATE AMINO TRANSFERASE 18 U/L (10-37); BILIRUBIN,TOTAL 0.2 MG/DL (0.1-1.0); BLOOD UREA NITROGEN 14 MG/DL (7-18); BUN/CREATININE RATIO 10.1 (6.6-38.0); CALCIUM 8.2 MG/DL (8.5-10.1); CHLORIDE 111 MMOL/L (99-107); CREATININE 1.39 MG/DL (0.40-0.90); GLUCOSE 144 MG/DL (70-104); POTASSIUM 4.6 MMOL/L (3.5-5.1); SODIUM 143 MMOL/L (135-145); TOTAL CARBON DIOXIDE 22.7 MMOL/L (24-32); TOTAL PROTEIN 6.3 G/DL (6.4-8.2); eGFR 37 ML/MIN
[2018-01-29] MEDS: cefepime 1GM/NS ADD-VANTAGE 100 ML IV SCH (08:02)
[2018-01-29] MEDS: pantoprazole 40mg Tablet.DR PO SCH (08:02)
[2018-01-29] MEDS: citalopram 20mg tablet PO SCH (08:03)
[2018-01-29] MEDS: loratadine 10mg tablet PO SCH (08:03)
[2018-01-29] MEDS: lactobacillus rhamnosus 10,000 MMU CELLS/CAPSULE PO SCH (08:04)
[2018-01-29] MEDS: tizanidine 4mg tablet PO SCH ×2 (08:04→13:29)
[2018-01-29] MEDS: heparin, porcine 5000 units/ml vial SQ SCH (08:06)
[2018-01-29] MEDS: normal saline 1000ml 1,000 ML IV SCH (08:28)
[2018-01-29] MEDS: hydrOXYzine 25 MG tablet PO PRN (08:28)
[2018-01-29 10:00] VITALS: BP 121/38
== END 2018-01-29 13:45 | disposition home health service (06) | DRG 880 ==
LOC: ER 20:39 → ED HOLD 01-28 02:54 → ORTHO 4S 01-28 15:10
PROVIDERS: ADMIT Internal Medicine; ATTEND Family Medicine
DX: F41.0 Panic disorder [episodic paroxysmal anxiety] (principal); N18.3 Chronic kidney disease, stage 3 (moderate); E11.22 Type 2 diabetes mellitus with diabetic chronic kidney disease; G89.29 Other chronic pain; M54.9 Dorsalgia, unspecified; Z90.710 Acquired absence of both cervix and uterus; Z88.5 Allergy status to narcotic agent; Z88.0 Allergy status to penicillin; Z88.2 Allergy status to sulfonamides; Z88.8 Allergy status to other drugs, medicaments and biological substances; Z79.899 Other long term (current) drug therapy; Z79.4 Long term (current) use of insulin
CPT/HCPCS: 36415; 80053; 81001; 82948; 83036; 84145; 85025; 87070; 87088; 99285; G0378; J0692; J1644; J7030; Q0177

== ENCOUNTER 2018-07-17 14:42 | Inpatient (IN) | payer MEDICARE, MEDICAID | END 2018-07-22 13:25 | disposition home or self-care (01) | LOC: ER 14:42 → SUR 3N 07-18 20:42 | DX: A41.9 Sepsis, unspecified organism (principal); J18.9 Pneumonia, unspecified organism; A04.72 Enterocolitis due to Clostridium difficile, not specified as recurrent; R19.7 Diarrhea, unspecified; E87.6 Hypokalemia ==

== ENCOUNTER 2018-11-13 15:02 | Emergency (ER) | payer MEDICARE, MEDICAID ==
[~2018-11-13] VITALS: Ht 157.5 cm; Wt 75.0 kg
[~2018-11-13 15:02] MED LIST changes: -BENA5TAB6 PO; +CALC-829 PO; +CHOL2000 PO; -CITA20TA27 PO; +CITA20TA28 PO; -HYDR-4383 PO; -INSU100C10 SQ; -INSU100V12 SQ; +LOVA40TA2 PO; -OMEP-50 PO; +OMEP20CA11 PO; -TIZA2TAB4 PO; +TIZA2TAB5 PO
[2018-11-13] MEDS ORDERED: famotidine/PF 10 mg/ml inj IV ONE (15:20)
[2018-11-13] MEDS ORDERED: sucralfate 1gm/10ml UD suspension PO STA (15:20)
[2018-11-13] MEDS ORDERED: mag hydrox/Alum hydrox/simeth 30ml oral suspension PO ONE (15:20)
[2018-11-13] MEDS ORDERED: ondansetron/PF 4mg/2ml inj IV ONE (15:40)
[2018-11-13] MEDS ORDERED: LORazepam 2 mg/ml vial IV ONE (16:05)
[2018-11-13 16:25] LABS: BASOPHILS % (AUTO) 0.3 % (0-1); EOSINOPHILS # (AUTO) 0.2 X10'3 (0-0.9); EOSINOPHILS % (AUTO) 1.6 % (0-6); HEMATOCRIT 33.4 % (35.0-45.0); HEMOGLOBIN 11.1 g/dl (12.0-16.0); LYMPHOCYTES # (AUTO) 1.3 X10'3 (1.1-4.8); LYMPHOCYTES % (AUTO) 11.7 % (21-51); MEAN CORPUSCULAR HGB CONC 33.3 g/dL (33.0-36.5); MONOCYTES # (AUTO) 0.9 X10'3 (0-0.9); MONOCYTES % (AUTO) 7.8 % (2-12); NEUTROPHILS # (AUTO) 8.9 X10'3 (1.8-7.7); NEUTROPHILS % (AUTO) 78.6 % (42-75); PLATELET COUNT 196 X10'3 (140-440); RED BLOOD COUNT 3.71 X10'6 (4.20-5.60); RED CELL DISTRIBUTION WIDTH 13.1 % (11.5-14.5); WHITE BLOOD COUNT 11.3 X10'3 (4.5-11.0)
[2018-11-13 16:30] LABS: ALANINE AMINOTRANSFERASE 27 U/L (12-78); ALBUMIN 3.1 G/DL (3.4-5.0); ALBUMIN/GLOBULIN RATIO 0.9 (1.1-1.5); ALKALINE PHOSPHATASE 97 IU/L (46-116); ANION GAP 10 (8-16); ASPARTATE AMINO TRANSFERASE 12 U/L (10-37); BILIRUBIN,TOTAL 0.4 MG/DL (0.1-1.0); BLOOD UREA NITROGEN 31 MG/DL (7-18); BUN/CREATININE RATIO 21.4 (6.6-38.0); CALCIUM 8.7 MG/DL (8.5-10.1); CHLORIDE 109 MMOL/L (99-107); CREATININE 1.45 MG/DL (0.40-0.90); GLUCOSE 121 MG/DL (70-104); POTASSIUM 4.7 MMOL/L (3.5-5.1); SODIUM 141 MMOL/L (135-145); TOTAL CARBON DIOXIDE 21.6 MMOL/L (24-32); TOTAL PROTEIN 6.4 G/DL (6.4-8.2); eGFR 35 ML/MIN
--- NOTE | 2018-11-13 16:30 | NUR ---
PATIENT DENIES ANY AND ALL ABDOMINAL PAIN
[2018-11-13 16:35] LABS: TROPONIN I < 0.04 NG/ML (0.0-0.05)
--- NOTE | 2018-11-13 16:35 | NUR ---
PATIENT ATE A CUP OF APPLESAUCE AND DRANK 120 ML WATER. VINCEN VERBALIZED THAT SHE WILL EAT WHEN SHE GETS HOME
[2018-11-13] MEDS ORDERED: ONDA4TAB6 PO (16:54)
[2018-11-13] MEDS ORDERED: SUCR1TAB34 PO (16:54)
[2018-11-13 17:28] VITALS: BP 136/56
== END 2018-11-13 17:22 | disposition home or self-care (01) ==
LOC: ER 15:03
DX: R10.13 Epigastric pain (principal); E11.9 Type 2 diabetes mellitus without complications; G89.29 Other chronic pain; Z98.61 Coronary angioplasty status; Z90.49 Acquired absence of other specified parts of digestive tract; Z90.710 Acquired absence of both cervix and uterus; Z98.890 Other specified postprocedural states; Z88.2 Allergy status to sulfonamides; Z88.0 Allergy status to penicillin; Z88.8 Allergy status to other drugs, medicaments and biological substances; Z79.899 Other long term (current) drug therapy
CPT/HCPCS: 36415; 80053; 82948; 84484; 85025; 93005; 96374; 96375; 99284; J2060; J2405; J3490

== ENCOUNTER 2018-12-06 12:14 | Emergency (ER) | payer MEDICARE, MEDICAID ==
[~2018-12-06] VITALS: Ht 157.5 cm; Wt 74.0 kg
[~2018-12-06 12:14] MED LIST changes: +ONDA4TAB6 PO; +SUCR1TAB34 PO
[2018-12-06 13:16] VITALS: BP 131/48
== END 2018-12-06 13:34 | disposition home or self-care (01) ==
LOC: ER 12:15
DX: L98.9 Disorder of the skin and subcutaneous tissue, unspecified (principal); E11.9 Type 2 diabetes mellitus without complications; G89.29 Other chronic pain; Z98.61 Coronary angioplasty status; Z90.49 Acquired absence of other specified parts of digestive tract; Z90.710 Acquired absence of both cervix and uterus; Z98.890 Other specified postprocedural states; Z88.0 Allergy status to penicillin; Z88.5 Allergy status to narcotic agent; Z88.8 Allergy status to other drugs, medicaments and biological substances; Z79.899 Other long term (current) drug therapy
CPT/HCPCS: 99283

== ENCOUNTER 2018-12-22 18:35 | Emergency (ER) | payer MEDICARE, MEDICAID ==
[~2018-12-22] VITALS: Ht 157.5 cm; Wt 74.0 kg
[2018-12-22 19:13] LABS: BASOPHILS # (AUTO) 0.1 X10'3 (0-0.2); BASOPHILS % (AUTO) 0.4 % (0-1); EOSINOPHILS # (AUTO) 0.2 X10'3 (0-0.9); EOSINOPHILS % (AUTO) 1.6 % (0-6); HEMATOCRIT 37.5 % (35.0-45.0); HEMOGLOBIN 12.4 g/dl (12.0-16.0); LYMPHOCYTES # (AUTO) 3.5 X10'3 (1.1-4.8); LYMPHOCYTES % (AUTO) 25.3 % (21-51); MEAN CORPUSCULAR HEMOGLOBIN 29.8 PG (27.0-31.0); MEAN CORPUSCULAR HGB CONC 33.1 g/dL (33.0-36.5); MEAN CORPUSCULAR VOLUME 90.1 FL (78-98); MEAN PLATELET VOLUME 6.7 FL (7.4-10.4); MONOCYTES % (AUTO) 7.4 % (2-12); NEUTROPHILS # (AUTO) 8.9 X10'3 (1.8-7.7); NEUTROPHILS % (AUTO) 65.3 % (42-75); PLATELET COUNT 277 X10'3 (140-440); RED BLOOD COUNT 4.16 X10'6 (4.20-5.60); RED CELL DISTRIBUTION WIDTH 13.2 % (11.5-14.5); WHITE BLOOD COUNT 13.7 X10'3 (4.5-11.0)
[2018-12-22 19:21] LABS: ALANINE AMINOTRANSFERASE 46 U/L (12-78); ALBUMIN 3.6 G/DL (3.4-5.0); ALBUMIN/GLOBULIN RATIO 0.9 (1.1-1.5); ALKALINE PHOSPHATASE 144 IU/L (46-116); ANION GAP 14 (8-16); ASPARTATE AMINO TRANSFERASE 34 U/L (10-37); BILIRUBIN,TOTAL 0.3 MG/DL (0.1-1.0); BLOOD UREA NITROGEN 26 MG/DL (7-18); BUN/CREATININE RATIO 16.3 (6.6-38.0); CALCIUM 9.3 MG/DL (8.5-10.1); CHLORIDE 108 MMOL/L (99-107); GLUCOSE 160 MG/DL (70-104); POTASSIUM 4.8 MMOL/L (3.5-5.1); SODIUM 142 MMOL/L (135-145); TOTAL CARBON DIOXIDE 19.8 MMOL/L (24-32); TOTAL PROTEIN 7.4 G/DL (6.4-8.2); eGFR 31 ML/MIN
[2018-12-22 19:25] LABS: TROPONIN I < 0.04 NG/ML (0.0-0.05)
[2018-12-22] MEDS ORDERED: normal saline 1000ML IV soln IVB ONE ×2 (19:25→20:40)
[2018-12-22] MEDS ORDERED: LORazepam 2 mg/ml vial IV ONE (19:25)
[2018-12-22] MEDS ORDERED: vancomycin 125mg/5ml ORAL solution 5ml UD bottle PO ONE (19:50)
[2018-12-22] MEDS ORDERED: VANC125C11 PO (21:57)
[2018-12-22 23:07] VITALS: BP 147/67
[2018-12-23 09:47] LABS: C DIFF ANTIGEN NEGATIVE (NEGATIVE); C DIFF SPECIMEN=DIARRHEA? ACCEPTABLE; C DIFFICILE TOXINS A&B NEGATIVE (Neg)
== END 2018-12-22 23:13 | disposition home or self-care (01) ==
LOC: ER 18:36
DX: F41.0 Panic disorder [episodic paroxysmal anxiety] (principal); R19.7 Diarrhea, unspecified; N18.9 Chronic kidney disease, unspecified; E11.9 Type 2 diabetes mellitus without complications; G89.29 Other chronic pain; F41.9 Anxiety disorder, unspecified; Z98.61 Coronary angioplasty status; Z90.49 Acquired absence of other specified parts of digestive tract; Z90.710 Acquired absence of both cervix and uterus; Z98.890 Other specified postprocedural states; Z88.0 Allergy status to penicillin; Z88.2 Allergy status to sulfonamides; Z88.8 Allergy status to other drugs, medicaments and biological substances; Z79.899 Other long term (current) drug therapy
CPT/HCPCS: 36415; 71045; 80053; 83605; 84145; 84484; 85025; 85610; 87040; 87324; 87449; 93005; 96361; 96374; 99284; J2060; J7030; J7040

== ENCOUNTER 2019-02-16 19:06 | Emergency (ER) | payer MEDICARE, MEDICAID ==
[~2019-02-16] VITALS: Ht 157.5 cm; Wt 71.0 kg
[~2019-02-16 19:06] MED LIST changes: +VANC125C11 PO
[2019-02-16] MEDS ORDERED: potassium 20mEq/D5LR 1,000 ML IV SCH (19:55)
[2019-02-16] MEDS ORDERED: ondansetron 4mg rapidly disintigrating tab PO ONE (19:55)
--- NOTE | 2019-02-16 20:05 | NUR ---
Pt covered with extra warmed blankets. Her blood glucose is WNLs and she is feeling better. She is eating and drinking. Made her a sandwiche.
--- NOTE | 2019-02-16 20:11 | NUR ---
bedside commode placed with urinary hat in place with cleansing wipe at bedside. Pts siderail down per pt request so she can get up and go to the bathroom when she is done with her sandwiche. She states she has been having dark stool, feels like she will need to have a bm here shortly. States she is on iron so she is not sure if dark r/t that or blood in stool.
--- NOTE | 2019-02-16 20:11 | NUR ---
MIVF ORDERED, D5LR WITH 20K, AND CLARIFIED WITH Reggie FARMER, HE DOES WANT THIS SPECIFIC MIVF. PT HUNGRY BUT ALSO WITH SOME NAUSEA, DECISIION FROM [facility] TO GIVEN SOME ANTIEMETIC, GIVE SOME FOOD, SEE RESPONSE, THEN START THE MIVF. CURRENT ACCUCHECK 127.
[2019-02-16 20:12] LABS: BASOPHILS # (AUTO) 0.1 X10'3 (0-0.2); BASOPHILS % (AUTO) 0.5 % (0-1); EOSINOPHILS % (AUTO) 0.1 % (0-6); HEMATOCRIT 35.8 % (35.0-45.0); HEMOGLOBIN 11.8 g/dl (12.0-16.0); LYMPHOCYTES # (AUTO) 1.2 X10'3 (1.1-4.8); LYMPHOCYTES % (AUTO) 6.5 % (21-51); MEAN CORPUSCULAR HGB CONC 32.8 g/dL (33.0-36.5); MEAN CORPUSCULAR VOLUME 88.4 FL (78-98); MEAN PLATELET VOLUME 6.9 FL (7.4-10.4); MONOCYTES # (AUTO) 0.5 X10'3 (0-0.9); MONOCYTES % (AUTO) 2.6 % (2-12); NEUTROPHILS % (AUTO) 90.3 % (42-75); PLATELET COUNT 251 X10'3 (140-440); RED BLOOD COUNT 4.05 X10'6 (4.20-5.60); RED CELL DISTRIBUTION WIDTH 13.3 % (11.5-14.5); WHITE BLOOD COUNT 18.8 X10'3 (4.5-11.0)
[2019-02-16 20:26] LABS: ALANINE AMINOTRANSFERASE 48 U/L (12-78); ALBUMIN 3.3 G/DL (3.4-5.0); ALBUMIN/GLOBULIN RATIO 0.8 (1.1-1.5); ALKALINE PHOSPHATASE 122 IU/L (46-116); ANION GAP 14 (8-16); ASPARTATE AMINO TRANSFERASE 44 U/L (10-37); BILIRUBIN,TOTAL 0.4 MG/DL (0.1-1.0); BLOOD UREA NITROGEN 27 MG/DL (7-18); BUN/CREATININE RATIO 18.6 (6.6-38.0); CALCIUM 8.8 MG/DL (8.5-10.1); CHLORIDE 106 MMOL/L (99-107); CREATININE 1.45 MG/DL (0.40-0.90); GLUCOSE 128 MG/DL (70-104); POTASSIUM 4.7 MMOL/L (3.5-5.1); SODIUM 139 MMOL/L (135-145); TOTAL CARBON DIOXIDE 19.4 MMOL/L (24-32); TOTAL PROTEIN 7.4 G/DL (6.4-8.2); eGFR 35 ML/MIN
[2019-02-16 21:22] LABS: CLARITY,URINE CLOUDY (Clear); COLOR,URINE YELLOW (Yellow); GLUCOSE, URINE NEGATIVE (Neg); KETONES,URINE 15 mg/dl (Neg); LEUKOCYTE ESTERASE ,URINE SMALL (Neg); NITRITES, URINE NEGATIVE (Neg); OCCULT BLOOD,URINE NEGATIVE (Neg); PROTEIN,URINE NEGATIVE (Neg); UROBILINOGEN,URINE 0.2 E.U/dL (0.2-1.0)
[2019-02-16 21:25] LABS: UA COLLECTION TYPE VOIDED
[2019-02-16 21:34] LABS: SQUAMOUS EPITHELIAL CELL,UR MANY /LPF (FEW); WBC,URINE 50-100 /HPF (0-4)
[2019-02-16 21:35] LABS: BACTERIA,URINE FEW /HPF (Neg); RBC,URINE 0-2 /HPF (0-2)
--- NOTE | 2019-02-16 21:39 | NUR ---
PT VERY ANXIOUS AND REQUESTING MEDICINE TO CALM HER DOWN. SHE IS SCARED, THINKING SHE HAD SEPSIS. I INFORMED HER THAT SHE DOES NOT HAVE SEPSIS. SHE HAS A UTI AND WILL GET FIRST DOSE OF ANTIBIOTIC HERE AND THAT SHE WILL GET TO GO HOME TONIGHT. SHE CALMED DOWN BUT STILL WANTS THE ATIVAN. SHE HAS A LITTLE DOG AT HOME. BEING IN THE HOSPITAL JUST REALLY SCARES HER, AND SHE SAID SHE HAD SEPSIS BEFORE AND PARANOID ABOUT EVER GETTING THAT AGAIN.
[2019-02-16] MEDS ORDERED: LORazepam 1 MG tablet PO ONE (21:40)
[2019-02-16] MEDS ORDERED: CefTRIAXone/D5W-Rocephin 1gm 50 ML IV ONE (21:40)
[2019-02-16 21:46] LABS: ABG HCO3 15.7 mmol/L (22.0-26.0); ABG OXYGEN SATURATION 97.2 % (95-98); ABG PCO2 (T) 21.7 mmHg (35.0-45.0); ABG PH (T) 7.477 (7.350-7.450); ABG PO2 (T) 85.8 mmHg (83-108); FMetHb 0.1 % (0.3-1.12); FO2Hb 97.1 % (94-100); RESPIRATORY RATE (OBSERVED) 26 b/min; TOTAL HEMOGLOBIN 12.1 G/dl (12.0-16.0)
[2019-02-16] MEDS ORDERED: CEPH250T PO (21:53)
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
[2019-02-16 22:53] VITALS: BP 152/77
== END 2019-02-16 22:55 | disposition home or self-care (01) ==
LOC: ER 19:06
DX: N39.0 Urinary tract infection, site not specified (principal); E11.649 Type 2 diabetes mellitus with hypoglycemia without coma; I12.9 Hypertensive chronic kidney disease with stage 1 through stage 4 chronic kidney disease, or unspecified chronic kidney disease; E11.22 Type 2 diabetes mellitus with diabetic chronic kidney disease; N18.9 Chronic kidney disease, unspecified; G89.29 Other chronic pain; Z95.5 Presence of coronary angioplasty implant and graft; Z90.49 Acquired absence of other specified parts of digestive tract; Z90.710 Acquired absence of both cervix and uterus; Z98.890 Other specified postprocedural states; Z88.8 Allergy status to other drugs, medicaments and biological substances; Z88.0 Allergy status to penicillin; Z88.2 Allergy status to sulfonamides; Z88.4 Allergy status to anesthetic agent
CPT/HCPCS: 36415; 36600; 74176; 80053; 81001; 82803; 82948; 85018; 85025; 93005; 96365; 99284; J0696; J3480

== ENCOUNTER 2019-05-03 08:14 | Emergency (ER) | payer MEDICARE, BC, MEDICAID ==
[~2019-05-03] VITALS: Ht 157.5 cm; Wt 73.6 kg
[~2019-05-03 08:14] MED LIST changes: -OMEP20CA11 PO; +OMEP20CA15 PO
--- NOTE | 2019-05-03 08:39 | NUR ---
PT REDIRECTABLE WITH MODERATE EFFORT. SHE IS SIGNIFICANTLY MORE CALM AND NO LONGER HYPERVENTILATING SHE WAS UPON ARRIVAL. PT STATES, "I THINK IT CAME ON BECAUSE THEY WOULDN'T LET ME EAT BECAUSE OF MY TESTS THIS MORNING. I TOOK TWO GLUCOSE TABLETS @ 3 THIS MORNING."
[2019-05-03] MEDS ORDERED: acetaminophen 325mg tablet PO ONE (09:05)
[2019-05-03 09:07] LABS: BASOPHILS % (AUTO) 0.4 % (0-1); EOSINOPHILS # (AUTO) 0.1 X10'3 (0-0.9); EOSINOPHILS % (AUTO) 1.5 % (0-6); HEMATOCRIT 34.9 % (35.0-45.0); HEMOGLOBIN 11.7 g/dl (12.0-16.0); LYMPHOCYTES # (AUTO) 2.2 X10'3 (1.1-4.8); LYMPHOCYTES % (AUTO) 23.9 % (21-51); MEAN CORPUSCULAR HEMOGLOBIN 29.8 PG (27.0-31.0); MEAN CORPUSCULAR HGB CONC 33.5 g/dL (33.0-36.5); MEAN CORPUSCULAR VOLUME 89.1 FL (78-98); MEAN PLATELET VOLUME 7.2 FL (7.4-10.4); MONOCYTES # (AUTO) 0.6 X10'3 (0-0.9); MONOCYTES % (AUTO) 5.9 % (2-12); NEUTROPHILS # (AUTO) 6.4 X10'3 (1.8-7.7); NEUTROPHILS % (AUTO) 68.3 % (42-75); PLATELET COUNT 226 X10'3 (140-440); RED BLOOD COUNT 3.92 X10'6 (4.20-5.60); RED CELL DISTRIBUTION WIDTH 14.8 % (11.5-14.5); WHITE BLOOD COUNT 9.4 X10'3 (4.5-11.0)
[2019-05-03 09:31] LABS: ALANINE AMINOTRANSFERASE 29 U/L (12-78); ALBUMIN 3.3 G/DL (3.4-5.0); ALBUMIN/GLOBULIN RATIO 0.9 (1.1-1.5); ALKALINE PHOSPHATASE 120 IU/L (46-116); ASPARTATE AMINO TRANSFERASE 22 U/L (10-37); BILIRUBIN,TOTAL 0.3 MG/DL (0.1-1.0); BLOOD UREA NITROGEN 17 MG/DL (7-18); BUN/CREATININE RATIO 14.4 (6.6-38.0); CALCIUM 8.6 MG/DL (8.5-10.1); CHLORIDE 109 MMOL/L (99-107); CREATININE 1.18 MG/DL (0.40-0.90); GLUCOSE 87 MG/DL (70-104); POTASSIUM 4.4 MMOL/L (3.5-5.1); TOTAL CARBON DIOXIDE 22.2 MMOL/L (24-32); TOTAL PROTEIN 6.8 G/DL (6.4-8.2); eGFR 44 ML/MIN
[2019-05-03 09:35] LABS: MAGNESIUM 1.2 MG/DL (1.5-2.4)
[2019-05-03 09:39] LABS: ANION GAP 11 (8-16); SODIUM 142 MMOL/L (135-145)
[2019-05-03 10:29] VITALS: BP 152/65
== END 2019-05-03 10:36 | disposition home or self-care (01) ==
LOC: ER 08:15
DX: R07.89 Other chest pain (principal); F41.0 Panic disorder [episodic paroxysmal anxiety]; I12.9 Hypertensive chronic kidney disease with stage 1 through stage 4 chronic kidney disease, or unspecified chronic kidney disease; E11.22 Type 2 diabetes mellitus with diabetic chronic kidney disease; N18.9 Chronic kidney disease, unspecified; G89.29 Other chronic pain; Z95.5 Presence of coronary angioplasty implant and graft; Z90.49 Acquired absence of other specified parts of digestive tract; Z90.710 Acquired absence of both cervix and uterus; Z98.890 Other specified postprocedural states; Z79.899 Other long term (current) drug therapy; Z88.0 Allergy status to penicillin; Z88.2 Allergy status to sulfonamides; Z88.8 Allergy status to other drugs, medicaments and biological substances
CPT/HCPCS: 36415; 71045; 80053; 82948; 83735; 83880; 84484; 85025; 93005; 99284

== ENCOUNTER 2019-08-09 14:30 | Emergency (ER) | payer BC, MEDICAID ==
[~2019-08-09] VITALS: Ht 157.5 cm; Wt 75.5 kg
[~2019-08-09 14:30] MED LIST changes: -TIZA2TAB5 PO; +TIZA2TAB7 PO
[2019-08-09] MEDS ORDERED: normal saline 1000ML IV soln IVB ONE (15:25)
[2019-08-09] MEDS ORDERED: morphine 4 MG/ML inj SYRINge IV PRN (15:25)
[2019-08-09] MEDS ORDERED: ondansetron/PF 4mg/2ml inj IV ONE (15:25)
[2019-08-09 15:53] LABS: CLARITY,URINE CLEAR (Clear); COLOR,URINE STRAW (Yellow); GLUCOSE, URINE NEGATIVE (Neg); KETONES,URINE NEGATIVE (Neg); LEUKOCYTE ESTERASE ,URINE TRACE (Neg); NITRITES, URINE NEGATIVE (Neg); OCCULT BLOOD,URINE NEGATIVE (Neg); PH,URINE 6.5 (4.8-8.0); PROTEIN,URINE NEGATIVE (Neg); UROBILINOGEN,URINE 0.2 E.U/dL (0.2-1.0)
[2019-08-09 15:57] LABS: UA COLLECTION TYPE VOIDED
[2019-08-09 16:00] LABS: RBC,URINE NONE SEEN /HPF (0-2)
[2019-08-09 16:01] LABS: BACTERIA,URINE NONE SEEN /HPF (Neg); MUCUS STRANDS NONE SEEN /LPF (Neg); SQUAMOUS EPITHELIAL CELL,UR FEW /LPF (FEW)
[2019-08-09 16:08] LABS: BASOPHILS # (AUTO) 0.1 X10'3 (0-0.2); BASOPHILS % (AUTO) 0.6 % (0-1); EOSINOPHILS # (AUTO) 0.1 X10'3 (0-0.9); EOSINOPHILS % (AUTO) 0.5 % (0-6); HEMATOCRIT 33.4 % (35.0-45.0); HEMOGLOBIN 11.3 g/dl (12.0-16.0); LYMPHOCYTES # (AUTO) 1.6 X10'3 (1.1-4.8); LYMPHOCYTES % (AUTO) 11.9 % (21-51); MEAN CORPUSCULAR HEMOGLOBIN 30.5 PG (27.0-31.0); MEAN CORPUSCULAR HGB CONC 33.7 g/dL (33.0-36.5); MEAN CORPUSCULAR VOLUME 90.6 FL (78-98); MEAN PLATELET VOLUME 7.5 FL (7.4-10.4); MONOCYTES # (AUTO) 0.7 X10'3 (0-0.9); MONOCYTES % (AUTO) 4.8 % (2-12); NEUTROPHILS # (AUTO) 11.3 X10'3 (1.8-7.7); NEUTROPHILS % (AUTO) 82.2 % (42-75); PLATELET COUNT 244 X10'3 (140-440); RED BLOOD COUNT 3.69 X10'6 (4.20-5.60); RED CELL DISTRIBUTION WIDTH 13.5 % (11.5-14.5); WHITE BLOOD COUNT 13.7 X10'3 (4.5-11.0)
[2019-08-09 16:13] VITALS: BP 123/83
[2019-08-09 16:21] LABS: ALANINE AMINOTRANSFERASE 18 U/L (12-78); ALBUMIN 3.1 G/DL (3.4-5.0); ALBUMIN/GLOBULIN RATIO 0.9 (1.1-1.5); ALKALINE PHOSPHATASE 131 IU/L (46-116); ANION GAP 11 (8-16); ASPARTATE AMINO TRANSFERASE 16 U/L (10-37); BILIRUBIN,TOTAL 0.2 MG/DL (0.1-1.0); BLOOD UREA NITROGEN 27 MG/DL (7-18); BUN/CREATININE RATIO 15.4 (6.6-38.0); CALCIUM 8.6 MG/DL (8.5-10.1); CHLORIDE 107 MMOL/L (99-107); CREATININE 1.75 MG/DL (0.40-0.90); GLUCOSE 187 MG/DL (70-104); LIPASE 191 U/L (73-393); POTASSIUM 3.8 MMOL/L (3.5-5.1); SODIUM 140 MMOL/L (135-145); TOTAL CARBON DIOXIDE 22.5 MMOL/L (24-32); TOTAL PROTEIN 6.5 G/DL (6.4-8.2); eGFR 28 ML/MIN
[2019-08-09 17:03] LABS: HEMOGLOBIN A1C 9.8 % (4.5-6.2)
== END 2019-08-09 18:02 | disposition home or self-care (01) ==
LOC: ER 14:31
DX: F41.0 Panic disorder [episodic paroxysmal anxiety] (principal); R10.84 Generalized abdominal pain; N18.9 Chronic kidney disease, unspecified; I12.9 Hypertensive chronic kidney disease with stage 1 through stage 4 chronic kidney disease, or unspecified chronic kidney disease; E11.22 Type 2 diabetes mellitus with diabetic chronic kidney disease; G89.29 Other chronic pain; Z98.61 Coronary angioplasty status; Z90.49 Acquired absence of other specified parts of digestive tract; Z90.710 Acquired absence of both cervix and uterus; Z98.890 Other specified postprocedural states; Z88.0 Allergy status to penicillin; Z88.2 Allergy status to sulfonamides; Z88.8 Allergy status to other drugs, medicaments and biological substances; Z79.2 Long term (current) use of antibiotics; Z79.899 Other long term (current) drug therapy
CPT/HCPCS: 36415; 74176; 80053; 81001; 83036; 83605; 83690; 85025; 87088; 96374; 96375; 99284; J2270; J2405; J7030

== ENCOUNTER 2020-01-09 23:22 | Emergency (ER) | payer BC, MEDICAID ==
[~2020-01-09] VITALS: Ht 160 cm; Wt 72.7 kg
[2020-01-10] MEDS ORDERED: normal saline 1000ML IV soln IVB ONE (00:10)
[2020-01-10 00:43] LABS: BASOPHILS % (AUTO) 0.2 % (0-1); EOSINOPHILS # (AUTO) 0.1 X10'3 (0-0.9); EOSINOPHILS % (AUTO) 1.6 % (0-6); HEMOGLOBIN 10.1 g/dl (12.0-16.0); MEAN CORPUSCULAR HEMOGLOBIN 30.4 PG (27.0-31.0); MEAN CORPUSCULAR HGB CONC 33.7 g/dL (33.0-36.5); MEAN CORPUSCULAR VOLUME 90.3 FL (78-98); MEAN PLATELET VOLUME 6.8 FL (7.4-10.4); MONOCYTES # (AUTO) 0.6 X10'3 (0-0.9); MONOCYTES % (AUTO) 6.6 % (2-12); NEUTROPHILS # (AUTO) 5.2 X10'3 (1.8-7.7); NEUTROPHILS % (AUTO) 57.6 % (42-75); PLATELET COUNT 206 X10'3 (140-440); RED BLOOD COUNT 3.33 X10'6 (4.20-5.60); RED CELL DISTRIBUTION WIDTH 13.2 % (11.5-14.5); WHITE BLOOD COUNT 8.9 X10'3 (4.5-11.0)
[2020-01-10 00:54] LABS: ALANINE AMINOTRANSFERASE 33 U/L (12-78); ALBUMIN 3.1 G/DL (3.4-5.0); ALKALINE PHOSPHATASE 97 IU/L (46-116); ANION GAP 7 (8-16); ASPARTATE AMINO TRANSFERASE 18 U/L (10-37); BILIRUBIN,TOTAL 0.3 MG/DL (0.1-1.0); BLOOD UREA NITROGEN 20 MG/DL (7-18); BUN/CREATININE RATIO 11.8 (6.6-38.0); CALCIUM 8.2 MG/DL (8.5-10.1); CHLORIDE 106 MMOL/L (99-107); CREATININE 1.69 MG/DL (0.40-0.90); GLUCOSE 57 MG/DL (70-104); SODIUM 140 MMOL/L (135-145); TOTAL CARBON DIOXIDE 26.6 MMOL/L (24-32); TOTAL PROTEIN 6.3 G/DL (6.4-8.2); eGFR 29 ML/MIN
[2020-01-10 01:14] LABS: CLARITY,URINE CLEAR (Clear); COLOR,URINE YELLOW (Yellow); GLUCOSE, URINE NEGATIVE (Neg); KETONES,URINE NEGATIVE (Neg); LEUKOCYTE ESTERASE ,URINE TRACE (Neg); NITRITES, URINE NEGATIVE (Neg); OCCULT BLOOD,URINE NEGATIVE (Neg); PROTEIN,URINE NEGATIVE (Neg); UROBILINOGEN,URINE 0.2 E.U/dL (0.2-1.0)
[2020-01-10 01:15] LABS: UA COLLECTION TYPE CLN CATCH MIDSTREAM
[2020-01-10 01:24] LABS: BACTERIA,URINE 1+ /HPF (Neg); RBC,URINE NONE SEEN /HPF (0-2); SQUAMOUS EPITHELIAL CELL,UR FEW /LPF (FEW); WBC,URINE 0-4 /HPF (0-4)
[2020-01-10 01:25] LABS: WBC CLUMPS,URINE FEW /HPF (NEGATIVE)
[2020-01-10 02:03] VITALS: BP 142/86
== END 2020-01-10 02:12 | disposition home or self-care (01) ==
LOC: ER 23:23
DX: E16.2 Hypoglycemia, unspecified (principal); R42 Dizziness and giddiness; I12.9 Hypertensive chronic kidney disease with stage 1 through stage 4 chronic kidney disease, or unspecified chronic kidney disease; N18.9 Chronic kidney disease, unspecified; E11.22 Type 2 diabetes mellitus with diabetic chronic kidney disease; G89.29 Other chronic pain; F41.9 Anxiety disorder, unspecified; Z90.49 Acquired absence of other specified parts of digestive tract; Z90.710 Acquired absence of both cervix and uterus; Z98.61 Coronary angioplasty status; Z98.890 Other specified postprocedural states; Z88.0 Allergy status to penicillin; Z88.8 Allergy status to other drugs, medicaments and biological substances; Z79.2 Long term (current) use of antibiotics; Z79.899 Other long term (current) drug therapy
CPT/HCPCS: 36415; 80053; 81001; 82948; 85025; 87088; 99283; J7030

== ENCOUNTER 2020-08-10 09:36 | Emergency (ER) | payer BC, MEDICAID ==
[~2020-08-10] VITALS: Ht 157.5 cm; Wt 72.7 kg
[~2020-08-10 09:36] MED LIST changes: -CALC-829 PO; +CALC-951 PO; +TIZA-189 PO; -TIZA2TAB7 PO
[2020-08-10] MEDS ORDERED: hydrOXYzine 25 MG tablet PO ONE (10:35)
[2020-08-10 11:10] LABS: BASOPHILS % (AUTO) 0.2 % (0-1); EOSINOPHILS # (AUTO) 0.1 X10'3 (0-0.9); EOSINOPHILS % (AUTO) 0.8 % (0-6); HEMATOCRIT 32.7 % (35.0-45.0); LYMPHOCYTES # (AUTO) 1.5 X10'3 (1.1-4.8); LYMPHOCYTES % (AUTO) 14.7 % (21-51); MEAN CORPUSCULAR HEMOGLOBIN 30.4 PG (27.0-31.0); MEAN CORPUSCULAR HGB CONC 33.6 g/dL (33.0-36.5); MEAN CORPUSCULAR VOLUME 90.3 FL (78-98); MEAN PLATELET VOLUME 7.1 FL (7.4-10.4); MONOCYTES # (AUTO) 0.5 X10'3 (0-0.9); NEUTROPHILS # (AUTO) 8.3 X10'3 (1.8-7.7); NEUTROPHILS % (AUTO) 79.3 % (42-75); PLATELET COUNT 210 X10'3 (140-440); RED BLOOD COUNT 3.62 X10'6 (4.20-5.60); RED CELL DISTRIBUTION WIDTH 12.7 % (11.5-14.5); WHITE BLOOD COUNT 10.5 X10'3 (4.5-11.0)
[2020-08-10 11:23] LABS: ALANINE AMINOTRANSFERASE 26 U/L (12-78); ALBUMIN 3.3 G/DL (3.4-5.0); ALKALINE PHOSPHATASE 141 IU/L (46-116); ANION GAP 10 (8-16); ASPARTATE AMINO TRANSFERASE 20 U/L (10-37); BILIRUBIN,TOTAL 0.4 MG/DL (0.1-1.0); BLOOD UREA NITROGEN 25 MG/DL (7-18); BUN/CREATININE RATIO 15.8 (6.6-38.0); CALCIUM 8.3 MG/DL (8.5-10.1); CHLORIDE 103 MMOL/L (99-107); CREATININE 1.58 MG/DL (0.40-0.90); GLUCOSE 156 MG/DL (70-104); SODIUM 135 MMOL/L (135-145); TOTAL CARBON DIOXIDE 22.4 MMOL/L (24-32); TOTAL PROTEIN 6.7 G/DL (6.4-8.2); eGFR 32 ML/MIN
[2020-08-10] MEDS ORDERED: sodium polystyrene sulfonate 15gm/60ml oral suspension PO ONE (12:00)
[2020-08-10 12:15] VITALS: BP 130/44
== END 2020-08-10 12:16 | disposition home or self-care (01) ==
LOC: ER 09:36
DX: F41.9 Anxiety disorder, unspecified (principal); E87.5 Hyperkalemia; I12.9 Hypertensive chronic kidney disease with stage 1 through stage 4 chronic kidney disease, or unspecified chronic kidney disease; E11.22 Type 2 diabetes mellitus with diabetic chronic kidney disease; N18.9 Chronic kidney disease, unspecified; G89.29 Other chronic pain; Z87.440 Personal history of urinary (tract) infections; Z90.89 Acquired absence of other organs; Z90.710 Acquired absence of both cervix and uterus; Z98.890 Other specified postprocedural states; Z88.0 Allergy status to penicillin; Z88.2 Allergy status to sulfonamides; Z88.8 Allergy status to other drugs, medicaments and biological substances; Z79.2 Long term (current) use of antibiotics; Z79.899 Other long term (current) drug therapy
CPT/HCPCS: 36415; 71045; 80053; 82948; 84484; 85025; 93005; 99285; Q0177

== ENCOUNTER 2020-09-02 05:14 | Emergency (ER) | payer BC, MEDICAID ==
[~2020-09-02] VITALS: Ht 157.5 cm; Wt 70.0 kg
[2020-09-02] MEDS ORDERED: normal saline 1000ML IV soln IVB ONE (06:10)
[2020-09-02 06:25] LABS: BASOPHILS % (AUTO) 0.2 % (0-1); EOSINOPHILS # (AUTO) 0.2 X10'3 (0-0.9); EOSINOPHILS % (AUTO) 1.9 % (0-6); HEMATOCRIT 32.6 % (35.0-45.0); HEMOGLOBIN 10.8 g/dl (12.0-16.0); LYMPHOCYTES # (AUTO) 1.8 X10'3 (1.1-4.8); MEAN CORPUSCULAR HEMOGLOBIN 30.1 PG (27.0-31.0); MEAN CORPUSCULAR HGB CONC 33.3 g/dL (33.0-36.5); MEAN CORPUSCULAR VOLUME 90.4 FL (78-98); MEAN PLATELET VOLUME 6.9 FL (7.4-10.4); MONOCYTES # (AUTO) 0.5 X10'3 (0-0.9); MONOCYTES % (AUTO) 5.4 % (2-12); NEUTROPHILS % (AUTO) 71.5 % (42-75); PLATELET COUNT 234 X10'3 (140-440); RED CELL DISTRIBUTION WIDTH 13.6 % (11.5-14.5); WHITE BLOOD COUNT 8.4 X10'3 (4.5-11.0)
[2020-09-02 07:00] LABS: ALANINE AMINOTRANSFERASE 65 U/L (12-78); ALBUMIN 3.2 G/DL (3.4-5.0); ALBUMIN/GLOBULIN RATIO 0.9 (1.1-1.5); ALKALINE PHOSPHATASE 188 IU/L (46-116); ANION GAP 13 (8-16); ASPARTATE AMINO TRANSFERASE 43 U/L (10-37); BILIRUBIN,TOTAL 0.3 MG/DL (0.1-1.0); BLOOD UREA NITROGEN 22 MG/DL (7-18); BUN/CREATININE RATIO 16.2 (6.6-38.0); CALCIUM 8.9 MG/DL (8.5-10.1); CHLORIDE 109 MMOL/L (99-107); CREATININE 1.36 MG/DL (0.40-0.90); GLUCOSE 122 MG/DL (70-104); POTASSIUM 5.4 MMOL/L (3.5-5.1); SODIUM 141 MMOL/L (135-145); TOTAL CARBON DIOXIDE 19.4 MMOL/L (24-32); TOTAL PROTEIN 6.8 G/DL (6.4-8.2); eGFR 38 ML/MIN
[2020-09-02 07:14] LABS: C-REACTIVE PROTEIN 0.88 MG/DL (0.0-0.5); FERRITIN 139 NG/ML (8-252); LACTATE DEHYDROGENASE 208 U/L (81-234)
[2020-09-02] MEDS ORDERED: normal saline 1000ML IV soln IV ONE (07:15)
[2020-09-02] MEDS ORDERED: pantoprazole 40 MG vial IV ONE (07:15)
[2020-09-02] MEDS ORDERED: famotidine/PF 10 mg/ml inj IV ONE (07:15)
[2020-09-02] MEDS ORDERED: ondansetron/PF 4mg/2ml inj IV ONE (07:15)
[2020-09-02] MEDS ORDERED: morphine 4 MG/ML inj SYRINge IM ONE (07:15)
[2020-09-02] MEDS ORDERED: pantoprazole 40MG/NS 100ML BAG 100 ML IV SCH ×3 (08:24→16:00)
[2020-09-02 09:12] LABS: PARTIAL THROMBOPLASTIN TIME 27 SECONDS (22-32)
[2020-09-02] MEDS ORDERED: potassium Cl 40MEQ/1/2NS 520ml 520 ML IV PRN ×2 (11:10)
[2020-09-02] MEDS ORDERED: acetaminophen 650mg rectal suppository RC PRN (11:10)
[2020-09-02] MEDS ORDERED: MESSAGE TO PHARMACY PO ONE (11:10)
[2020-09-02] MEDS ORDERED: ondansetron/PF 4mg/2ml inj IV PRN (11:10)
[2020-09-02] MEDS ORDERED: magnesium 2GM in 50ml NS 50 ML IV PRN (11:10)
[2020-09-02] MEDS ORDERED: dextrose ORAL solution 15 GM/59 ML bottle PO PRN ×2 (11:10)
[2020-09-02] MEDS ORDERED: morphine 2 MG/ML inj. syringe IV PRN ×2 (11:10)
[2020-09-02] MEDS ORDERED: potassium Cl 20 mEq SR tablet PO PRN ×2 (11:10)
[2020-09-02] MEDS ORDERED: dextrose 50%-water 50ml dispensing syringe IV PRN ×2 (11:10)
[2020-09-02] MEDS ORDERED: magnesium hydroxide 30ml (MOM) UD suspension PO PRN (11:10)
[2020-09-02] MEDS ORDERED: magnesium 4gm in 100ml NS 100 ML IV PRN (11:10)
[2020-09-02] MEDS ORDERED: insulin Lispro (HumaLOG) vial - multi-dose SQ SCH (11:10)
[2020-09-02] MEDS ORDERED: glucagon, human recombinant 1mg kit SUBCUT PRN (11:10)
[2020-09-02 12:45] VITALS: BP 183/130
[2020-09-02] MEDS ORDERED: MIDAZolam 1 MG/ML 5ML VIAL ONE (12:57)
[2020-09-02] MEDS ORDERED: fentaNYL/PF 50MCG/1 ML 2ML syringe ONE (12:57)
[2020-09-02] MEDS ORDERED: LIDOcaine Viscous 15ml cup ONE (12:57)
[2020-09-02 13:22] VITALS: BP 157/85
[2020-09-02 13:32] VITALS: BP 152/96
[2020-09-02] MEDS ORDERED: OMEP20CA15 PO (13:35)
[2020-09-02 13:42] VITALS: BP 170/110
[2020-09-02 13:52] VITALS: BP 168/70
[2020-09-02 14:53] VITALS: BP 157/43
[2020-09-02] MEDS ORDERED: K and/or MAG REPLACEMENT MC SCH (20:00)
[2020-09-02] MEDS ORDERED: insulin glargine (Lantus) pen - multi-dose SQ SCH (21:00)
[2020-09-05] MEDS ORDERED: OMEP20CA15 PO (00:25)
[2020-09-05] MEDS ORDERED: SUCR1TAB PO (00:25)
[2020-09-05] MEDS ORDERED: FAMO-128 PO (00:25)
[2020-09-05] MEDS ORDERED: ONDA4TAB6 PO (01:17)
== END 2020-09-02 16:24 | disposition home or self-care (01) ==
LOC: ER 05:15 → ED HOLD 11:06 → UNDOADMIN 11:06 → UNDODISIN 14:44 → ER 16:24
PROC: 0DB68ZX Excision of Stomach, Via Natural or Artificial Opening Endoscopic, Diagnostic (ICD-10-PCS; principal; 2020-09-02)
DX: K29.61 Other gastritis with bleeding (principal); Z20.822 Contact with and (suspected) exposure to COVID-19; N17.9 Acute kidney failure, unspecified; D64.9 Anemia, unspecified; K29.81 Duodenitis with bleeding; E11.22 Type 2 diabetes mellitus with diabetic chronic kidney disease; E11.42 Type 2 diabetes mellitus with diabetic polyneuropathy; F41.0 Panic disorder [episodic paroxysmal anxiety]; I12.9 Hypertensive chronic kidney disease with stage 1 through stage 4 chronic kidney disease, or unspecified chronic kidney disease; J06.9 Acute upper respiratory infection, unspecified; M54.9 Dorsalgia, unspecified; R19.7 Diarrhea, unspecified; E87.5 Hyperkalemia; N18.30 Chronic kidney disease, stage 3 unspecified; Z66 Do not resuscitate; F41.9 Anxiety disorder, unspecified; G43.909 Migraine, unspecified, not intractable, without status migrainosus; G89.29 Other chronic pain; Z87.11 Personal history of peptic ulcer disease; Z90.710 Acquired absence of both cervix and uterus; Z88.0 Allergy status to penicillin; Z88.2 Allergy status to sulfonamides; Z88.8 Allergy status to other drugs, medicaments and biological substances; Z98.61 Coronary angioplasty status; Z79.899 Other long term (current) drug therapy
CPT/HCPCS: 36415; 43239; 71045; 74176; 80053; 82728; 83036; 83615; 83880; 84145; 85025; 85384; 85610; 85730; 86140; 86885; 86900; 86901; 87635; 93005; 96365; 96366; 96372; 96375; 96376; 99285; C9113; C9803; J1815; J2250; J2270; J2405; J3010; J3490; J7030; J7040; 96374; 99152; A4620; G0378

== ENCOUNTER 2020-09-04 17:17 | Emergency (ER) | payer BC, MEDICAID ==
[~2020-09-04] VITALS: Ht 157.5 cm; Wt 160.0 kg
[2020-09-04 18:15] LABS: BASOPHILS % (AUTO) 0.2 % (0-1); MONOCYTES # (AUTO) 0.8 X10'3 (0-0.9); RED CELL DISTRIBUTION WIDTH 13.7 % (11.5-14.5)
[2020-09-04 18:16] LABS: EOSINOPHILS # (AUTO) 0.1 X10'3 (0-0.9); HEMATOCRIT 35.9 % (35.0-45.0); HEMOGLOBIN 11.7 g/dl (12.0-16.0); LYMPHOCYTES % (AUTO) 27.4 % (21-51); MEAN CORPUSCULAR HEMOGLOBIN 29.6 PG (27.0-31.0); MEAN CORPUSCULAR HGB CONC 32.7 g/dL (33.0-36.5); MEAN CORPUSCULAR VOLUME 90.5 FL (78-98); MEAN PLATELET VOLUME 6.9 FL (7.4-10.4); MONOCYTES % (AUTO) 5.4 % (2-12); NEUTROPHILS # (AUTO) 9.6 X10'3 (1.8-7.7); PLATELET COUNT 312 X10'3 (140-440); RED BLOOD COUNT 3.97 X10'6 (4.20-5.60); WHITE BLOOD COUNT 14.6 X10'3 (4.5-11.0)
[2020-09-04 18:33] LABS: ALANINE AMINOTRANSFERASE 53 U/L (12-78); ALBUMIN 3.7 G/DL (3.4-5.0); ALBUMIN/GLOBULIN RATIO 0.9 (1.1-1.5); ALKALINE PHOSPHATASE 208 IU/L (46-116); AMYLASE 53 U/L (25-115); ANION GAP 17 (8-16); ASPARTATE AMINO TRANSFERASE 31 U/L (10-37); BILIRUBIN,TOTAL 0.7 MG/DL (0.1-1.0); BLOOD UREA NITROGEN 20 MG/DL (7-18); BUN/CREATININE RATIO 11.5 (6.6-38.0); CALCIUM 9.6 MG/DL (8.5-10.1); CHLORIDE 99 MMOL/L (99-107); CREATININE 1.74 MG/DL (0.40-0.90); GLUCOSE 209 MG/DL (70-104); LIPASE 151 U/L (73-393); POTASSIUM 5.4 MMOL/L (3.5-5.1); SODIUM 138 MMOL/L (135-145); TOTAL CARBON DIOXIDE 22.4 MMOL/L (24-32); TOTAL PROTEIN 7.8 G/DL (6.4-8.2); eGFR 28 ML/MIN
--- NOTE | 2020-09-04 19:07 | NUR ---
UP TO BSC, MAONING : VOIDED YELLOW URINE WITH ONE SMALL BM BROWN
[2020-09-04 19:16] LABS: NUCLEATED RED BLOOD CELLS 1 /100WBC (0-0); PLATELET ESTIMATE NORMAL; TOTAL CELLS COUNTED 100
--- NOTE | 2020-09-04 20:30 | NUR ---
patient had very large brown bowel movement and vomited green chunks on the floor. patietn cleaned up with wipes, new gown and assisted back to bed
--- NOTE | 2020-09-04 21:00 | NUR ---
erlin guthrie attempted 2 ivs, ric guthrie placed ultrasound guided iv
[2020-09-04] MEDS ORDERED: ondansetron/PF 4mg/2ml inj IV ONE ×2 (21:05→22:20)
[2020-09-04] MEDS ORDERED: normal saline 1000ml 1,000 ML IV ONE (21:05)
[2020-09-04] MEDS ORDERED: pantoprazole 40 MG vial IV ONE (22:20)
[2020-09-04] MEDS ORDERED: mag hydrox/Alum hydrox/simeth 30ml oral suspension PO ONE (22:20)
[2020-09-04] MEDS ORDERED: famotidine/PF 10 mg/ml inj IV ONE (22:20)
[2020-09-04] MEDS ORDERED: sucralfate 1gm/10ml UD suspension PO ONE (22:20)
[2020-09-04] MEDS ORDERED: LIDOcaine Viscous 15ml cup MM ONE (22:20)
[2020-09-05] MEDS ORDERED: OMEP20CA15 PO (00:25)
[2020-09-05] MEDS ORDERED: FAMO-128 PO (00:25)
[2020-09-05] MEDS ORDERED: SUCR1TAB PO (00:25)
[2020-09-05 00:48] VITALS: BP 146/88
[2020-09-05] MEDS ORDERED: ONDA4TAB6 PO (01:17)
[2020-09-05] MEDS ORDERED: hydrOXYzine 25 MG tablet PO ONE (01:55)
== END 2020-09-04 18:30 | disposition home or self-care (01) ==
LOC: ER 17:18
DX: R10.13 Epigastric pain (principal); K29.70 Gastritis, unspecified, without bleeding; R11.0 Nausea; I12.9 Hypertensive chronic kidney disease with stage 1 through stage 4 chronic kidney disease, or unspecified chronic kidney disease; E11.22 Type 2 diabetes mellitus with diabetic chronic kidney disease; G89.29 Other chronic pain; F41.9 Anxiety disorder, unspecified; N18.9 Chronic kidney disease, unspecified; Z87.440 Personal history of urinary (tract) infections; Z90.89 Acquired absence of other organs; Z90.710 Acquired absence of both cervix and uterus; Z98.890 Other specified postprocedural states; Z88.0 Allergy status to penicillin; Z88.8 Allergy status to other drugs, medicaments and biological substances; Z79.899 Other long term (current) drug therapy
CPT/HCPCS: 36415; 74176; 76937; 80053; 82150; 83690; 85007; 85025; 96361; 96374; 96375; 96376; 99284; C9113; J2405; J3490; J7030; 88305; 88342; Q0177

== ENCOUNTER → 2021-02-19 | Emergency (ER) | payer BC, MEDICAID ==
[~2021-02-19] VITALS: Ht 157.5 cm; Wt 70.5 kg
[~2021-02-19] MED LIST changes: +FAMO-128 PO; +LORazepam 2 mg/ml vial IV ONE; +SUCR1TAB PO; +ipratropium/albuterol 3ml nebule NEB ONE; +methylPREDNISolone sod succ 125mg/2ml vial IV ONE
[2021-02-19 10:43] VITALS: BP 111/53
[2021-02-19 11:04] LABS: BASOPHILS % (AUTO) 0.4 % (0-1); EOSINOPHILS # (AUTO) 0.3 X10'3 (0-0.9); EOSINOPHILS % (AUTO) 2.5 % (0-6); HEMATOCRIT 33.1 % (35.0-45.0); HEMOGLOBIN 11.1 g/dl (12.0-16.0); LYMPHOCYTES # (AUTO) 2.6 X10'3 (1.1-4.8); LYMPHOCYTES % (AUTO) 25.7 % (21-51); MEAN CORPUSCULAR HEMOGLOBIN 30.1 PG (27.0-31.0); MEAN CORPUSCULAR HGB CONC 33.4 g/dL (33.0-36.5); MEAN CORPUSCULAR VOLUME 90.2 FL (78-98); MEAN PLATELET VOLUME 6.7 FL (7.4-10.4); MONOCYTES # (AUTO) 0.6 X10'3 (0-0.9); MONOCYTES % (AUTO) 5.5 % (2-12); NEUTROPHILS # (AUTO) 6.7 X10'3 (1.8-7.7); NEUTROPHILS % (AUTO) 65.9 % (42-75); PLATELET COUNT 227 X10'3 (140-440); RED BLOOD COUNT 3.67 X10'6 (4.20-5.60); RED CELL DISTRIBUTION WIDTH 13.2 % (11.5-14.5); WHITE BLOOD COUNT 10.2 X10'3 (4.5-11.0)
[2021-02-19 11:15] LABS: ALANINE AMINOTRANSFERASE 25 U/L (12-78); ALBUMIN 3.5 G/DL (3.4-5.0); ALBUMIN/GLOBULIN RATIO 0.9 (1.1-1.5); ANION GAP 16 (8-16); ASPARTATE AMINO TRANSFERASE 17 U/L (10-37); BILIRUBIN,TOTAL 0.3 MG/DL (0.1-1.0); BLOOD UREA NITROGEN 23 MG/DL (7-18); CALCIUM 8.1 MG/DL (8.5-10.1); CHLORIDE 107 MMOL/L (99-107); CREATININE 1.53 MG/DL (0.40-0.90); GLUCOSE 163 MG/DL (70-104); POTASSIUM 4.6 MMOL/L (3.5-5.1); SODIUM 142 MMOL/L (135-145); TOTAL CARBON DIOXIDE 19.3 MMOL/L (24-32); TOTAL PROTEIN 7.2 G/DL (6.4-8.2); eGFR 33 ML/MIN
[2021-02-19 11:16] LABS: ALKALINE PHOSPHATASE 144 IU/L (46-116)
== END | disposition home or self-care (01) ==
LOC: ER 10:31
DX: F41.9 Anxiety disorder, unspecified (principal); I12.9 Hypertensive chronic kidney disease with stage 1 through stage 4 chronic kidney disease, or unspecified chronic kidney disease; E11.22 Type 2 diabetes mellitus with diabetic chronic kidney disease; N18.9 Chronic kidney disease, unspecified; G89.29 Other chronic pain; Z95.5 Presence of coronary angioplasty implant and graft; Z90.49 Acquired absence of other specified parts of digestive tract; Z90.710 Acquired absence of both cervix and uterus; Z88.0 Allergy status to penicillin; Z88.2 Allergy status to sulfonamides; Z88.8 Allergy status to other drugs, medicaments and biological substances; Z79.899 Other long term (current) drug therapy
CPT/HCPCS: 36415; 71045; 80053; 84484; 85025; 93005; 99285

== ENCOUNTER 2021-05-07 09:53 | Emergency (ER) | payer BC, MEDICAID ==
[~2021-05-07] VITALS: Ht 157.5 cm; Wt 71.4 kg
[~2021-05-07 09:53] MED LIST changes: -LORazepam 2 mg/ml vial IV ONE; -ipratropium/albuterol 3ml nebule NEB ONE; -methylPREDNISolone sod succ 125mg/2ml vial IV ONE
--- NOTE | 2021-05-07 10:56 | NUR ---
dr. chamberlain at bedside.
[2021-05-07] MEDS ORDERED: LORazepam 2 mg/ml vial IV ONE (11:10)
[2021-05-07] MEDS ORDERED: normal saline 1000ML IV soln IVB ONE (11:10)
[2021-05-07] MEDS ORDERED: pantoprazole 40MG/D5 100ML BAG 100 ML IV ONE (11:10)
--- NOTE | 2021-05-07 11:20 | NUR ---
piv started, labs drawn and sent. pt continues to report dizziness, lower back pain and sweating. bs re-checked, 78. pt provided with two juices and crackers.
[2021-05-07] MEDS ORDERED: pantoprazole 40MG/NS 100ML BAG 100 ML IV ONE (11:21)
[2021-05-07 11:36] LABS: BASOPHILS % (AUTO) 0.3 % (0-1); EOSINOPHILS # (AUTO) 0.1 X10'3 (0-0.9); EOSINOPHILS % (AUTO) 0.7 % (0-6); HEMATOCRIT 34.5 % (35.0-45.0); HEMOGLOBIN 11.4 g/dl (12.0-16.0); LYMPHOCYTES # (AUTO) 3.1 X10'3 (1.1-4.8); MEAN CORPUSCULAR HEMOGLOBIN 29.7 PG (27.0-31.0); MEAN CORPUSCULAR HGB CONC 33.2 g/dL (33.0-36.5); MEAN CORPUSCULAR VOLUME 89.4 FL (78-98); MEAN PLATELET VOLUME 6.9 FL (7.4-10.4); MONOCYTES # (AUTO) 1.2 X10'3 (0-0.9); MONOCYTES % (AUTO) 6.6 % (2-12); NEUTROPHILS % (AUTO) 74.4 % (42-75); PLATELET COUNT 258 X10'3 (140-440); RED BLOOD COUNT 3.86 X10'6 (4.20-5.60); RED CELL DISTRIBUTION WIDTH 13.5 % (11.5-14.5); WHITE BLOOD COUNT 17.4 X10'3 (4.5-11.0)
[2021-05-07 11:47] LABS: ALANINE AMINOTRANSFERASE 31 U/L (12-78); ALBUMIN 3.4 G/DL (3.4-5.0); ALKALINE PHOSPHATASE 133 IU/L (46-116); ANION GAP 15 (8-16); ASPARTATE AMINO TRANSFERASE 20 U/L (10-37); BILIRUBIN,TOTAL 0.3 MG/DL (0.1-1.0); BLOOD UREA NITROGEN 20 MG/DL (7-18); BUN/CREATININE RATIO 13.2 (6.6-38.0); CALCIUM 8.4 MG/DL (8.5-10.1); CHLORIDE 105 MMOL/L (99-107); CREATININE 1.51 MG/DL (0.40-0.90); GLUCOSE 85 MG/DL (70-104); LIPASE 175 U/L (73-393); POTASSIUM 3.8 MMOL/L (3.5-5.1); SODIUM 139 MMOL/L (135-145); TOTAL CARBON DIOXIDE 19.1 MMOL/L (24-32); TOTAL PROTEIN 6.8 G/DL (6.4-8.2); eGFR 33 ML/MIN
--- NOTE | 2021-05-07 12:25 | NUR ---
urine in lab. pt up to bsc independently.
[2021-05-07 12:34] LABS: CLARITY,URINE CLEAR (Clear); COLOR,URINE YELLOW (Yellow); GLUCOSE, URINE NEGATIVE (Neg); KETONES,URINE NEGATIVE (Neg); LEUKOCYTE ESTERASE ,URINE TRACE (Neg); NITRITES, URINE NEGATIVE (Neg); OCCULT BLOOD,URINE NEGATIVE (Neg); PH,URINE 6.5 (4.8-8.0); PROTEIN,URINE NEGATIVE (Neg); UROBILINOGEN,URINE 0.2 E.U/dL (0.2-1.0)
[2021-05-07 12:35] LABS: UA COLLECTION TYPE CLN CATCH MIDSTREAM
[2021-05-07 12:41] LABS: SQUAMOUS EPITHELIAL CELL,UR FEW /LPF (FEW)
[2021-05-07 12:42] LABS: BACTERIA,URINE FEW /HPF (Neg); RBC,URINE 0-2 /HPF (0-2)
--- NOTE | 2021-05-07 13:55 | NUR ---
pt to ct via stretcher
--- NOTE | 2021-05-07 14:05 | NUR ---
returned from ct without incident.
--- NOTE | 2021-05-07 15:15 | NUR ---
pt ambulated to/from restroom without incident.
[2021-05-07 16:30] VITALS: BP 168/67
[2021-05-07] MEDS ORDERED: CEPH-585 PO (16:42)
[2021-05-07] MEDS ORDERED: cephalexin 250mg capsule PO ONE (16:45)
== END 2021-05-07 16:57 | disposition home or self-care (01) ==
LOC: ER 09:53
DX: N39.0 Urinary tract infection, site not specified (principal); R42 Dizziness and giddiness; F41.9 Anxiety disorder, unspecified; R10.84 Generalized abdominal pain; I12.0 Hypertensive chronic kidney disease with stage 5 chronic kidney disease or end stage renal disease; E11.22 Type 2 diabetes mellitus with diabetic chronic kidney disease; N18.6 End stage renal disease; G89.29 Other chronic pain; Z95.5 Presence of coronary angioplasty implant and graft; Z90.49 Acquired absence of other specified parts of digestive tract; Z90.710 Acquired absence of both cervix and uterus; Z88.2 Allergy status to sulfonamides; Z88.1 Allergy status to other antibiotic agents; Z79.899 Other long term (current) drug therapy; Z79.2 Long term (current) use of antibiotics
CPT/HCPCS: 36415; 74176; 80053; 81001; 82948; 83690; 85025; 87088; 96374; 96375; 99284; C9113; J2060; J7030; 96365; 96366

== ENCOUNTER 2021-05-15 10:34 | Emergency (ER) | payer BC, MEDICAID ==
[~2021-05-15] VITALS: Ht 157.5 cm; Wt 69.5 kg
[~2021-05-15 10:34] MED LIST changes: +CEPH-585 PO
[2021-05-15 11:13] VITALS: BP 133/40
== END 2021-05-15 12:51 | disposition left against medical advice (07) ==
LOC: ER 10:34
DX: F41.9 Anxiety disorder, unspecified (principal); F41.0 Panic disorder [episodic paroxysmal anxiety]; R07.89 Other chest pain; I12.9 Hypertensive chronic kidney disease with stage 1 through stage 4 chronic kidney disease, or unspecified chronic kidney disease; E11.22 Type 2 diabetes mellitus with diabetic chronic kidney disease; N18.9 Chronic kidney disease, unspecified; Z87.440 Personal history of urinary (tract) infections; Z90.89 Acquired absence of other organs; Z90.710 Acquired absence of both cervix and uterus; Z98.890 Other specified postprocedural states; Z88.0 Allergy status to penicillin; Z88.2 Allergy status to sulfonamides; Z88.8 Allergy status to other drugs, medicaments and biological substances; Z79.2 Long term (current) use of antibiotics; Z79.899 Other long term (current) drug therapy
CPT/HCPCS: 99283

== ENCOUNTER 2021-08-02 18:53 | Emergency (ER) | payer BC, MEDICAID ==
[~2021-08-02] VITALS: Ht 157.5 cm; Wt 70.0 kg
[2021-08-02] MEDS ORDERED: LORazepam 2 mg/ml vial IV ONE (19:10)
[2021-08-02 19:32] LABS: HEMOGLOBIN 11.3 g/dl (12.0-16.0); RED BLOOD COUNT 3.89 X10'6 (4.20-5.60)
[2021-08-02 19:33] LABS: BASOPHILS # (AUTO) 0.1 X10'3 (0-0.2); BASOPHILS % (AUTO) 0.5 % (0-1); EOSINOPHILS # (AUTO) 0.2 X10'3 (0-0.9); HEMATOCRIT 34.5 % (35.0-45.0); LYMPHOCYTES # (AUTO) 3.8 X10'3 (1.1-4.8); LYMPHOCYTES % (AUTO) 32.8 % (21-51); MEAN CORPUSCULAR HGB CONC 32.7 g/dL (33.0-36.5); MEAN CORPUSCULAR VOLUME 88.7 FL (78-98); MEAN PLATELET VOLUME 6.6 FL (7.4-10.4); MONOCYTES # (AUTO) 0.7 X10'3 (0-0.9); NEUTROPHILS # (AUTO) 6.8 X10'3 (1.8-7.7); NEUTROPHILS % (AUTO) 58.7 % (42-75); PLATELET COUNT 239 X10'3 (140-440); RED CELL DISTRIBUTION WIDTH 13.4 % (11.5-14.5); WHITE BLOOD COUNT 11.5 X10'3 (4.5-11.0)
[2021-08-02] MEDS ORDERED: CITA20TA26 (19:33)
[2021-08-02] MEDS ORDERED: BUSP15TA3 PO (19:33)
[2021-08-02] MEDS ORDERED: ALEN70TA80 PO (19:33)
[2021-08-02] MEDS ORDERED: OMEP40CA21 PO (19:33)
[2021-08-02] MEDS ORDERED: PREDNISOLONE (19:33)
[2021-08-02] MEDS ORDERED: BENA10TA75 PO (19:33)
[2021-08-02] MEDS ORDERED: ALBUTEROL (19:33)
[2021-08-02] MEDS ORDERED: OFLO5DRO3 (19:33)
[2021-08-02] MEDS ORDERED: NEED-136 (19:33)
[2021-08-02] MEDS ORDERED: INSU100I45 SQ (19:33)
[2021-08-02] MEDS ORDERED: FAMO20TA8 PO (19:33)
[2021-08-02] MEDS ORDERED: OMEP20CA16 PO (19:33)
[2021-08-02] MEDS ORDERED: LINA5TAB4 PO (19:33)
[2021-08-02] MEDS ORDERED: ONDA-103 (19:33)
[2021-08-02] MEDS ORDERED: TAMSULOSIN (19:33)
[2021-08-02] MEDS ORDERED: ATOR40TA72 PO (19:33)
[2021-08-02] MEDS ORDERED: INSU100I25 SQ (19:33)
[2021-08-02] MEDS ORDERED: BENA10TA74 PO (19:33)
[2021-08-02 19:36] LABS: ALANINE AMINOTRANSFERASE 25 U/L (12-78); ALBUMIN 3.5 G/DL (3.4-5.0); ALBUMIN/GLOBULIN RATIO 0.9 (1.1-1.5); ALKALINE PHOSPHATASE 148 IU/L (46-116); ANION GAP 12 (8-16); ASPARTATE AMINO TRANSFERASE 14 U/L (10-37); BILIRUBIN,TOTAL 0.3 MG/DL (0.1-1.0); BLOOD UREA NITROGEN 19 MG/DL (7-18); BUN/CREATININE RATIO 14.7 (6.6-38.0); CALCIUM 8.2 MG/DL (8.5-10.1); CHLORIDE 105 MMOL/L (99-107); CREATININE 1.29 MG/DL (0.40-0.90); GLUCOSE 184 MG/DL (70-104); POTASSIUM 4.3 MMOL/L (3.5-5.1); SODIUM 136 MMOL/L (135-145); TOTAL PROTEIN 7.2 G/DL (6.4-8.2); eGFR 40 ML/MIN
--- NOTE | 2021-08-02 19:37 | NUR ---
Pt had one BM. No complications. Pt then back to bed. ERP to bedside on pt arrival. No code stroke to be called per Dr. Taylor.
--- NOTE | 2021-08-02 20:35 | NUR ---
Pt pink, no acute/resp distress. Bed in lowest position, wheels locked, rail 2/2 up. Will continue to monitor for acute changes and needs. Pt laying supine, able to reposition self PRN. Will continue to monitor for acute changes and needs.
[2021-08-02] MEDS ORDERED: meclizine 12.5mg tablet PO ONE (21:35)
[2021-08-02] MEDS ORDERED: ondansetron/PF 4mg/2ml inj IV ONE (21:35)
[2021-08-02 21:54] VITALS: BP 108/68
[2021-08-02] MEDS ORDERED: MECL-159 PO (22:08)
--- NOTE | 2021-08-02 22:24 | NUR ---
pt refuses wheelchair. Cab called for pt by charge nurse Jaimie ALEJANDRO. Pt pink, alert, no acute impending distress. Denies further questions re; aci. PIV d/c fully intact.
--- NOTE | 2021-08-07 07:13 | NUR ---
PT CALLED REGARDING VISIT ON 08/02/32. RX FOR MECLIZINE 25MG WAS NOT RECEIVED BY E-TRANSMITTLE TO [facility] [facility]. PT REQUESTED THAT IT BE CALLED IN. RX FOR MECLIZINE 25MG; 1 TAB PO QID #40 NO REFILLS WAS CALLED INTO [facility] [place].
== END 2021-08-03 04:18 | disposition home or self-care (01) ==
LOC: EDBD 18:53 → EDUNIT# 18:53 → ER 19:05
DX: F41.9 Anxiety disorder, unspecified (principal); R06.4 Hyperventilation; R42 Dizziness and giddiness; R10.9 Unspecified abdominal pain; E11.9 Type 2 diabetes mellitus without complications; Z88.0 Allergy status to penicillin; Z88.2 Allergy status to sulfonamides; Z88.8 Allergy status to other drugs, medicaments and biological substances
CPT/HCPCS: 71045; 80053; 82948; 85025; 93005; 96374; 96375; 99285; J2060; J2405; J8597

== ENCOUNTER 2022-04-24 08:43 | Emergency (ER) | payer BC, MEDICAID ==
[~2022-04-24] VITALS: Ht 157.5 cm; Wt 71.0 kg
[~2022-04-24 08:43] MED LIST changes: +ALBUTEROL; +ALEN70TA80 PO; +ATOR40TA72 PO; +BENA10TA74 PO; +BENA10TA75 PO; +BUSP15TA3 PO; +CITA20TA26; +FAMO20TA8 PO; +INSU100I25 SQ; +INSU100I45 SQ; +LINA5TAB4 PO; +MECL-159 PO; +NEED-136; +OFLO5DRO3; +OMEP20CA16 PO; +OMEP40CA21 PO; +ONDA-103; +PREDNISOLONE; +TAMSULOSIN
[2022-04-24 08:50] VITALS: BP 128/54
[2022-04-24] MEDS ORDERED: calcium gluconate inj. 1 GM in normal saline 100ml IV soln 100 ML IV ONE (09:10)
[2022-04-24 09:12] LABS: BASOPHILS % (AUTO) 0.2 % (0-1); EOSINOPHILS # (AUTO) 0.2 X10'3 (0-0.9); EOSINOPHILS % (AUTO) 1.3 % (0-6); HEMATOCRIT 33.2 % (35.0-45.0); HEMOGLOBIN 10.9 g/dl (12.0-16.0); LYMPHOCYTES # (AUTO) 2.9 X10'3 (1.1-4.8); LYMPHOCYTES % (AUTO) 25.5 % (21-51); MEAN CORPUSCULAR HEMOGLOBIN 29.3 PG (27.0-31.0); MEAN CORPUSCULAR HGB CONC 32.9 g/dL (33.0-36.5); MEAN PLATELET VOLUME 6.6 FL (7.4-10.4); MONOCYTES # (AUTO) 0.6 X10'3 (0-0.9); MONOCYTES % (AUTO) 5.5 % (2-12); NEUTROPHILS # (AUTO) 7.7 X10'3 (1.8-7.7); NEUTROPHILS % (AUTO) 67.5 % (42-75); PLATELET COUNT 211 X10'3 (140-440); RED BLOOD COUNT 3.73 X10'6 (4.20-5.60); RED CELL DISTRIBUTION WIDTH 13.8 % (11.5-14.5); WHITE BLOOD COUNT 11.4 X10'3 (4.5-11.0)
[2022-04-24] MEDS ORDERED: calcium gluconate inj. 1 GM in normal saline 50ml IV soln 50 ML IV ONE (09:16)
[2022-04-24 09:24] LABS: ALANINE AMINOTRANSFERASE 36 U/L (12-78); ALBUMIN 3.4 G/DL (3.4-5.0); ALKALINE PHOSPHATASE 120 IU/L (46-116); ANION GAP 10 (8-16); ASPARTATE AMINO TRANSFERASE 23 U/L (10-37); BILIRUBIN,TOTAL 0.4 MG/DL (0.1-1.0); BLOOD UREA NITROGEN 38 MG/DL (7-18); BUN/CREATININE RATIO 17.5 (6.6-38.0); CALCIUM 8.5 MG/DL (8.5-10.1); CHLORIDE 98 MMOL/L (99-107); CREATININE 2.17 MG/DL (0.40-0.90); GLUCOSE 265 MG/DL (70-104); MAGNESIUM 1.8 MG/DL (1.5-2.4); SODIUM 130 MMOL/L (135-145); TOTAL CARBON DIOXIDE 21.6 MMOL/L (24-32); TOTAL PROTEIN 6.9 G/DL (6.4-8.2); eGFR 22 ML/MIN
[2022-04-24] MEDS ORDERED: normal saline 1000ml 1,000 ML IV ONE (09:35)
== END 2022-04-24 10:33 | disposition home or self-care (01) ==
LOC: ER 08:44
DX: E86.0 Dehydration (principal); E11.9 Type 2 diabetes mellitus without complications; Z88.0 Allergy status to penicillin; Z88.8 Allergy status to other drugs, medicaments and biological substances
CPT/HCPCS: 36415; 80053; 83735; 85025; 93005; 96365; 99284; J0610; J3490; J7030

== ENCOUNTER 2023-03-11 00:58 | Emergency (ER) | payer BC, MEDICAID ==
[~2023-03-11] VITALS: Ht 157.5 cm; Wt 74.0 kg
[~2023-03-11 00:58] MED LIST changes: -CEPH-585 PO; -INSU100I25 SQ; +INSU100I27 SQ; -INSU100I45 SQ; +INSU100I61 SQ; -MECL-159 PO; +MECL-302 PO; -OFLO5DRO3; +OFLO5DRO6
[2023-03-11 01:16] LABS: BASOPHILS # (AUTO) 0.1 X10'3 (0-0.2); BASOPHILS % (AUTO) 0.6 % (0-1); EOSINOPHILS # (AUTO) 0.1 X10'3 (0-0.9); EOSINOPHILS % (AUTO) 0.5 % (0-6); HEMATOCRIT 38.4 % (35.0-45.0); HEMOGLOBIN 12.6 g/dl (12.0-16.0); LYMPHOCYTES # (AUTO) 1.4 X10'3 (1.1-4.8); LYMPHOCYTES % (AUTO) 12.9 % (21-51); MEAN CORPUSCULAR HEMOGLOBIN 29.1 PG (27.0-31.0); MEAN CORPUSCULAR HGB CONC 32.7 g/dL (33.0-36.5); MEAN PLATELET VOLUME 6.3 FL (7.4-10.4); MONOCYTES # (AUTO) 0.5 X10'3 (0-0.9); MONOCYTES % (AUTO) 4.8 % (2-12); NEUTROPHILS # (AUTO) 8.9 X10'3 (1.8-7.7); NEUTROPHILS % (AUTO) 81.2 % (42-75); PLATELET COUNT 251 X10'3 (140-440); RED BLOOD COUNT 4.31 X10'6 (4.20-5.60); RED CELL DISTRIBUTION WIDTH 14.3 % (11.5-14.5)
[2023-03-11 01:34] LABS: ALANINE AMINOTRANSFERASE 22 U/L (12-78); ALBUMIN 3.1 G/DL (3.4-5.0); ALBUMIN/GLOBULIN RATIO 0.8 (1.1-1.5); ALKALINE PHOSPHATASE 183 IU/L (46-116); ANION GAP 11 (8-16); ASPARTATE AMINO TRANSFERASE 9 U/L (10-37); BILIRUBIN,TOTAL 0.4 MG/DL (0.1-1.0); BLOOD UREA NITROGEN 24 MG/DL (7-18); BUN/CREATININE RATIO 11.2 (10.0-20.0); CALCIUM 8.4 MG/DL (8.5-10.1); CHLORIDE 102 MMOL/L (99-107); CREATININE 2.14 MG/DL (0.40-0.90); GLUCOSE 276 MG/DL (70-104); POTASSIUM 4.6 MMOL/L (3.5-5.1); SODIUM 134 MMOL/L (135-145); TOTAL CARBON DIOXIDE 21.3 MMOL/L (24-32); TOTAL PROTEIN 7.1 G/DL (6.4-8.2); eCRCL 16 ML/MIN; eGFR 22 ML/MIN
[2023-03-11 01:42] LABS: PRO BRAIN NATRIURETIC PEPTIDE 156 PG/ML (0-450)
[2023-03-11] MEDS ORDERED: mag hydrox/Alum hydrox/simeth 30ml oral suspension PO ONE ×2 (01:50→04:50)
[2023-03-11] MEDS ORDERED: normal saline 1000ml 1,000 ML IV ONE (01:50)
[2023-03-11] MEDS ORDERED: ondansetron/PF 4mg/2ml inj IV ONE (01:50)
[2023-03-11] MEDS ORDERED: LIDOcaine Viscous 15ml cup MM ONE (01:50)
[2023-03-11] MEDS ORDERED: fentaNYL/PF 50MCG/1 ML 2ML syringe IV ONE (01:50)
[2023-03-11] MEDS ORDERED: pantoprazole 40 MG vial IV ONE (01:50)
[2023-03-11] MEDS ORDERED: LOPE2CAP PO (04:52)
[2023-03-11] MEDS ORDERED: ONDA8TAB13 PO (04:52)
[2023-03-11] MEDS ORDERED: MAG355OR18 PO (04:52)
[2023-03-11] MEDS ORDERED: loperamide 2mg capsule PO ONE (04:55)
[2023-03-11 05:45] VITALS: BP 150/92; PULSE 88; RESP 16; O2SAT 97
== END 2023-03-11 05:25 | disposition home or self-care (01) ==
LOC: ER 00:59
DX: K52.89 Other specified noninfective gastroenteritis and colitis (principal)
CPT/HCPCS: 36415; 71045; 74176; 80053; 82948; 83880; 84484; 85025; 93005; 96361; 96374; 96375; 99285; C9113; J2405; J3010; J7030; A6250

== ENCOUNTER 2023-03-11 10:48 | Emergency (ER) | payer BC, MEDICAID ==
[~2023-03-11] VITALS: Ht 157.5 cm; Wt 74.1 kg
[~2023-03-11 10:48] MED LIST changes: +LOPE2CAP PO; +MAG355OR18 PO; +ONDA8TAB13 PO
[2023-03-11] MEDS ORDERED: hyDROXYzine 50 mg/ml injection ***IM only IM ONE (12:20)
[2023-03-11] MEDS: diphenhydrAMINE 50 mg/ml inj IM ONE (12:39)
[2023-03-11 13:44] VITALS: BP 160/86; PULSE 96; RESP 18; TEMP 97.9; O2SAT 99
== END 2023-03-11 13:47 | disposition home or self-care (01) ==
LOC: ER 10:49
DX: R19.7 Diarrhea, unspecified (principal); R15.9 Full incontinence of feces; R10.9 Unspecified abdominal pain; R11.0 Nausea; F41.9 Anxiety disorder, unspecified; E11.9 Type 2 diabetes mellitus without complications; Z79.899 Other long term (current) drug therapy; Z79.2 Long term (current) use of antibiotics; Z88.0 Allergy status to penicillin; Z88.1 Allergy status to other antibiotic agents; Z88.8 Allergy status to other drugs, medicaments and biological substances
CPT/HCPCS: 96372; 99283; J1200

== ENCOUNTER 2023-06-04 21:09 | Emergency (ER) | payer BC, MEDICAID ==
[~2023-06-04] VITALS: Ht 157.5 cm; Wt 72.7 kg
[~2023-06-04 21:09] MED LIST changes: -MAG355OR18 PO
[2023-06-04 22:35] VITALS: TEMP 99
[2023-06-04 22:45] LABS: BASOPHILS # (AUTO) 0.2 X10'3 (0-0.2); BASOPHILS % (AUTO) 1.7 % (0-1); EOSINOPHILS % (AUTO) 0.3 % (0-6); HEMATOCRIT 33.6 % (35.0-45.0); HEMOGLOBIN 11.4 g/dl (12.0-16.0); LYMPHOCYTES # (AUTO) 0.8 X10'3 (1.1-4.8); LYMPHOCYTES % (AUTO) 7.7 % (21-51); MEAN CORPUSCULAR HEMOGLOBIN 30.2 PG (27.0-31.0); MEAN CORPUSCULAR VOLUME 88.8 FL (78-98); MONOCYTES # (AUTO) 0.4 X10'3 (0-0.9); MONOCYTES % (AUTO) 3.7 % (2-12); NEUTROPHILS # (AUTO) 8.9 X10'3 (1.8-7.7); NEUTROPHILS % (AUTO) 86.6 % (42-75); PLATELET COUNT 220 X10'3 (140-440); RED BLOOD COUNT 3.78 X10'6 (4.20-5.60); RED CELL DISTRIBUTION WIDTH 13.7 % (11.5-14.5); WHITE BLOOD COUNT 10.2 X10'3 (4.5-11.0)
[2023-06-04 22:54] LABS: ALBUMIN 2.7 G/DL (3.4-5.0); ANION GAP 12 (8-16); BLOOD UREA NITROGEN 13 MG/DL (7-18); BUN/CREATININE RATIO 7.9 (10.0-20.0); CALCIUM 8.1 MG/DL (8.5-10.1); CHLORIDE 110 MMOL/L (99-107); CREATININE 1.64 MG/DL (0.40-0.90); GLUCOSE 191 MG/DL (70-104); POTASSIUM 4.9 MMOL/L (3.5-5.1); SODIUM 142 MMOL/L (135-145); TOTAL CARBON DIOXIDE 20.4 MMOL/L (24-32); eCRCL 21 ML/MIN; eGFR 30 ML/MIN
[2023-06-04 23:13] LABS: BILIRUBIN,URINE NEGATIVE (Neg); CLARITY,URINE CLEAR (Clear); COLOR,URINE YELLOW (Yellow); GLUCOSE, URINE >=1000 mg/dl (Neg); KETONES,URINE NEGATIVE (Neg); LEUKOCYTE ESTERASE ,URINE NEGATIVE (Neg); NITRITES, URINE NEGATIVE (Neg); OCCULT BLOOD,URINE NEGATIVE (Neg); PH,URINE 6.5 (4.8-8.0); PROTEIN,URINE NEGATIVE (Neg); UROBILINOGEN,URINE 0.2 E.U/dL (0.2-1.0)
[2023-06-04 23:17] LABS: UA COLLECTION TYPE NON-SPECIFIED
[2023-06-04 23:22] LABS: BACTERIA,URINE NONE SEEN /HPF (Neg); MUCUS STRANDS FEW /LPF (Neg); RBC,URINE 0-2 /HPF (0-2); SQUAMOUS EPITHELIAL CELL,UR FEW /LPF (FEW); WBC,URINE 0-4 /HPF (0-4)
[2023-06-04 23:58] VITALS: BP 113/58; PULSE 78; RESP 18; O2SAT 100
== END 2023-06-05 00:58 | disposition home or self-care (01) ==
LOC: ER 21:09
DX: E11.649 Type 2 diabetes mellitus with hypoglycemia without coma (principal); F41.9 Anxiety disorder, unspecified; Z79.899 Other long term (current) drug therapy; Z88.0 Allergy status to penicillin; Z88.2 Allergy status to sulfonamides; Z88.8 Allergy status to other drugs, medicaments and biological substances; Z79.2 Long term (current) use of antibiotics
CPT/HCPCS: 36415; 80048; 81001; 82948; 85025; 99283

== ENCOUNTER 2023-09-25 02:58 | Emergency (ER) | payer MEDICARE, MEDICAID ==
[~2023-09-25] VITALS: Ht 157.5 cm; Wt 59.1 kg
[~2023-09-25 02:58] MED LIST changes: -BENA10TA74 PO; -BENA10TA75 PO; +BENA5TAB39 PO; -CHOL2000 PO; -CITA20TA26; +EMPA10TA PO; -FAMO20TA8 PO; +FLAS1KIT2; -INSU100I27 SQ; -INSU100I61 SQ; +LEVEMIR; -LOPE2CAP PO; -LORA10TA7 PO; +LORAZEPAM; +MAGN400T56 PO; -MECL-302 PO; -ONDA-103; -ONDA8TAB13 PO; +SEMA1PEN3 SQ; -TIZA-189 PO; -VANC125C11 PO
[2023-09-25 03:33] VITALS: TEMP 98.1
[2023-09-25 07:21] VITALS: BP 128/76; PULSE 109; RESP 18; O2SAT 99
[2023-09-25] MEDS: ketorolac tromethamine 15mg/ml inj. IM ONE (07:23)
[2023-09-25] MEDS ORDERED: CIPR-202 PO (07:55)
[2023-09-25] MEDS: HYDROmorphone 2mg tablet PO ONE (08:21)
== END 2023-09-25 08:50 | disposition home or self-care (01) ==
LOC: ER 02:58
DX: K52.9 Noninfective gastroenteritis and colitis, unspecified (principal); R10.84 Generalized abdominal pain; E11.9 Type 2 diabetes mellitus without complications; F41.9 Anxiety disorder, unspecified; Z88.0 Allergy status to penicillin; Z88.2 Allergy status to sulfonamides; Z88.8 Allergy status to other drugs, medicaments and biological substances; Z79.899 Other long term (current) drug therapy
CPT/HCPCS: 74176; 96372; 99285; J1885